=== PATIENT | male | born 1970 | race Caucasian/White ===

== ENCOUNTER 2023-06-25 04:29 | Observation (INO) ==
--- NOTE | 2023-06-25 05:04 | Emergency Department Note ---
Impression & Plan Acute cholecystitis, Upper abdominal pain, Leukocytosis, unspecified ED Provider Note NAME: DACIA NGO AGE: 53 SEX: M : 1970 ARRIVES VIA: Walk-In INFORMANT: Patient ED PROVIDER(S): Delio Lobo MD CHIEF COMPLAINT: Abdominal pain. PLAN: Disposition: Admit MEDICAL DECISION MAKING: The patient is a pleasant 53-year-old gentleman with a pmhx of hypertension who presents to the emergency department via walk-in for evaluation of worsening upper abdominal pain with nausea and vomiting which reports has been ongoing for the past week and been constant where he has found it difficult to sleep. He denies any fevers, chills, cough congestion. He reports some radiation to his back. He denies any diarrhea or constipation. He denies any urinary symptoms. He denies any prior history of similar pain. The patient reports alcohol use only on the weekends and amount can be variable but no recent heavy alcohol use. On evaluation the patient is uncomfortable in acute distress, afebrile blood pressure initially 190/120s in the setting of his discomfort and vital signs otherwise stable. He appears clinically dry. He has mild epigastric tenderness without guarding or rebound. There is a negative Pitt sign. WBC 14.3 K with neutrophil predominance though no left shift, nonspecific. H/H 18.5/56.7 without prior for comparison but consistent with patient's clinically dry appearance. Chemistry without metabolic acidosis. Electrolytes and LFTs including normal total bilirubin unremarkable. High-sensitivity troponin 8.4, within normal limits. Lipase is not elevated. CT of the on pelvis was performed and demonstrates evidence of cholecystitis with description of distended gallbladder and gallbladder wall thickening with pericholecystic inflammation and a 7 mm stone within the cystic duct. Blood cultures obtained and IV Zosyn ordered. Gallbladder ultrasound ordered to further characterize CT findings. Case was discussed with general surgery on-call, Dr. Sandoval, who will evaluate the patient for admission and further management. Triage Nursing notes reviewed and agree them. Prior/external medical records reviewed Vital Signs: reviewed Differential diagnosis: Appendicitis, testicular torsion, infections, diverticulitis, UTI, obstruction, mesenteric ischemia, aortic pathology, inflammatory bowel disease, renal colic, PUD, pancreatitis, biliary pathology, hernia, volvulus, constipation, as well as other pathologies. ER treatment provided: See below. Diagnostics interpreted by me: ECG: Normal sinus rhythm, 69 bpm, no ectopy, no overt ST elevation or depression, QTc 415, QRS 88. Cardiac Monitoring: An order for continuous cardiac monitoring was placed and demonstrated Normal sinus rhythm, 69 bpm, no ectopy. Laboratory studies: See below Imaging studies: See below Consultation(s): General surgery on-call, Dr. Sandoval HPI: The patient is a pleasant 53-year-old gentleman with a pmhx of hypertension who presents to the emergency department via walk-in for evaluation of worsening upper abdominal pain with nausea and vomiting which reports has been ongoing for the past week and been constant where he has found it difficult to sleep. He denies any fevers, chills, cough congestion. He reports some radiation to his back. He denies any diarrhea or constipation. He denies any urinary symptoms. He denies any prior history of similar pain. The patient reports alcohol use only on the weekends and amount can be variable but no recent heavy alcohol use. ROS: See above HPI for pertinent positives & negatives. A total of 10 systems reviewed and were otherwise negative. VITALS:See Below PHYSICAL EXAMINATION: GENERAL: Awake, alert, uncomfortable-appearing, in no distress HENT: Normocephalic, atraumatic. Oropharynx with dry mucous membranes and otherwise unremarkable. EYES: Normal conjunctiva. Sclera non-icteric. NECK: Supple. No nuchal rigidity. FROM. No JVD. RESPIRATORY: Clear to auscultation. CARDIAC: Regular rate, normal rhythm. Extremities warm and well perfused. Pulses equal. ABDOMEN: Soft, non-distended. Mild epigastric tenderness to palpation. No rebound or guarding. No masses. MUSCULOSKELETAL: Chest examination reveals no tenderness. The back is symmetrical on inspection without obvious abnormality. There is no CVA tenderness to palpation. No joint edema. LOWER EXTREMITIES: Calves are equal size bilaterally and non-tender. No edema. No discoloration. NEURO: Normal sensorium. No sensory or motor deficits noted. SKIN: No rash or jaundice noted. Delio Lobo MD Past Med/Surg History Medical History Hypertension Social History Smoking Status: Never smoker Feels Safe at Home: Yes Results & Data (ED) Vital Signs Vital Signs - 24 hr 06/25/23 04:33 06/25/23 04:42 06/25/23 04:50 Temperature 36.6 C Temperature Source Temporal Artery Scan Pulse Rate 70 66 68 Pulse Rate [Right Finger] Pulse Rhythm Regular Pulse Rhythm [Right Finger] Pulse Strength Normal Pulse Strength [Right Finger] Respiratory Rate 20 19 Respiratory Effort / Characteristics Non-Labored Spontaneous Respiratory Depth Normal Respiratory Pattern Regular Blood Pressure 190/125 H Blood Pressure [Left Arm] Blood Pressure Mean 146 Blood Pressure Mean [Left Arm] Blood Pressure Position Sitting Blood Pressure Position [Left Arm] Pulse Oximetry 95 95 Oxygen Delivery Method Room Air Room Air Sepsis Recent Fever Within 48 Hours No Sepsis New/Unexplained Change in Mental Status N/A Sepsis Action Taken by Nursing No Action Required 06/25/23 06:01 06/25/23 07:12 06/25/23 08:56 Temperature Temperature Source Pulse Rate 82 Pulse Rate [Right Finger] 73 63 Pulse Rhythm Pulse Rhythm [Right Finger] Regular Pulse Strength Pulse Strength [Right Finger] Normal Respiratory Rate 23 18 Respiratory Effort / Characteristics Non-Labored Spontaneous Respiratory Depth Normal Respiratory Pattern Blood Pressure Blood Pressure [Left Arm] 163/99 H 148/99 H Blood Pressure Mean Blood Pressure Mean [Left Arm] 120 115 Blood Pressure Position Blood Pressure Position [Left Arm] Lying Pulse Oximetry 93 94 Oxygen Delivery Method Room Air Room Air Sepsis Recent Fever Within 48 Hours Sepsis New/Unexplained Change in Mental Status Sepsis Action Taken by Nursing Laboratory Data Attestation: I reviewed the patient's lab results. 06/25/23 04:50 06/25/23 04:50 Lab Results 06/25/23 06/25/23 Range/Units 04:50 06:50 WBC 14.38 H (4.8-10.8) K/ul RBC 6.33 H (4.70-6.10) M/uL Hgb 18.5 H (14.0-18.0) g/dl Hct 56.7 H (42.0-52.0) % MCV 89.6 (80.0-100.0) fL MCH 29.2 (25.0-34.0) pg MCHC 32.6 (32.0-36.0) g/dL RDW Std Deviation 43.2 (36.4-46.3) fL RDW Coeff of Jennifer 13.6 (11.5-14.5) % Plt Count 289 (130-400) K/uL MPV 12.9 H (9.4-12.4) fL Immature Gran % (Auto) 0.7 % Neut % (Auto) 74.3 % Lymph % (Auto) 6.6 % Mason % (Auto) 13.4 % Eos % (Auto) 4.7 % Baso % (Auto) 0.3 % Neut # (Auto) 10.68 H (1.40-6.50) K/uL Lymph # (Auto) 0.95 L (1.20-3.40) K/uL Mason # (Auto) 1.93 H (0.11-0.59) K/uL Eos # (Auto) 0.68 H (0.00-0.50) K/uL Baso # (Auto) 0.04 (0.00-0.20) K/uL Immature Gran # (Auto) 0.10 (0.01-0.20) K/uL Sodium 137 (136-145) mmol/L Potassium 4.0 (3.5-5.1) mmol/L Chloride 101 (98-107) mmol/L Carbon Dioxide 27 (21-32) mmol/L Anion Gap 9 (3-11) BUN 15 (6-23) mg/dl Creatinine 1.23 (0.6-1.4) mg/dl Est Cr Clr Drug Dosing 69.8 ml/min Est GFR ( Amer) 77.2 ml/min Est GFR (Non-Af Amer) 66.6 ml/min BUN/Creatinine Ratio 12.2 (10-20) Glucose 98 (70-99(Fasting)) mg/dl Calcium 9.7 (8.6-10.3) mg/dl Total Bilirubin 0.5 (0.2-1.0) mg/dl Direct Bilirubin 0.1 (0-0.2) mg/dl AST 15 (13-39) U/L ALT 21 (7-52) U/L Alkaline Phosphatase 62 (34-104) U/L Troponin I High Sens 8.4 (0-20) pg/ml Total Protein 8.5 H (6.0-8.3) gm/dl Albumin 4.5 (3.4-5.0) gm/dl Globulin 4.0 (2.5-4.0) gm/dl Albumin/Globulin Ratio 1.1 (0.9-2) Lipase 29 (11-82) U/L Urine Color Yellow Urine Appearance Clear (Clear) Urine pH 5.5 (4.5-7.5) Ur Specific Willard 1.025 (1.000-1.030) Urine Protein 1+ H (Negative) Urine Glucose (UA) Negative (Negative) Urine Ketones Trace H (Negative) Urine Blood Negative (Negative) Urine Nitrite Negative (Negative) Urine Bilirubin Negative (Negative) Urine Urobilinogen Negative (Negative) Ur Leukocyte Esterase Negative (Negative) Urine WBC (Auto) 0 (0-5) /hpf Urine RBC (Auto) 0-4 (0-4) /hpf U Hyaline Cast (Auto) 1-5 (0-5) /lpf U Epithel Cells (Auto) 0-5 (0-5) /lpf Urine Bacteria (Auto) Negative (Negative) Administered Medications Discontinued Medications Sodium Chloride (Nss) 1,000 mls @ 999 mls/hr IV .Q1H1M STA Stop: 06/25/23 05:42 Last Infusion: 06/25/23 06:42 Dose: Infused Documented By: Admin: 06/25/23 05:11 Dose: 999 mls/hr Documented By: ALVIN Famotidine (Pepcid 20mg Iv Push) 20 mg in 5 mls @ 2.5 mls/min IV NOW STA Stop: 06/25/23 05:04 Last Admin: 06/25/23 05:12 Dose: 2.5 mls/min Documented By: ALVIN Sodium Chloride (Nss) 1,000 mls @ 999 mls/hr IV .Q1H1M ONE Stop: 06/25/23 08:18 Last Admin: 06/25/23 08:47 Dose: 999 mls/hr Documented By: RYLEY Ioversol (Optiray 320 100ml) 100 ml IV ONCE ONE Stop: 06/25/23 06:41 Last Admin: 06/25/23 06:41 Dose: 90 ml Documented By: LILIAM Morphine Sulfate (Morphine Sulfate 4 Mg/Ml 1 Ml Carp\Vial) 4 mg IV NOW STA Stop: 06/25/23 05:04 Last Admin: 06/25/23 05:11 Dose: 4 mg Documented By: ALVIN Morphine Sulfate (Morphine Sulfate 10 Mg/Ml Carp/Vial) 6 mg IV NOW STA Stop: 06/25/23 08:23 Last Admin: 06/25/23 08:47 Dose: 6 mg Documented By: RYLEY Ondansetron HCl (Ondansetron Inj 2 Mg/Ml 2 Ml Vial) 4 mg IV NOW STA Stop: 06/25/23 05:04 Last Admin: 06/25/23 05:11 Dose: 4 mg Documented By: ALVIN Imaging Data Radiologist's Impression: Abdomen/Pelvis CT 06/25/23 04:42 CT OF THE ABDOMEN AND PELVIS WITH CONTRAST CLINICAL HISTORY: Epigastric pain. COMPARISON STUDY: None. TECHNIQUE: Following IV administration of 90 mL of Optiray, axial images of the abdomen and pelvis were obtained from the lung bases to the proximal femurs. Images were reviewed in the axial, sagittal, and coronal planes. IV contrast was administered without complication. Automated exposure control was utilized for the study. A dose lowering technique was utilized adhering to the principles of ALARA. CT DOSE: 1464.09 mGy.cm FINDINGS: No pneumatosis, free air or portal venous gas is present. There is no biliary or pancreatic ductal dilatation. Possible hepatic steatosis. Several small hypodense hepatic lesions favor cysts. The gallbladder is moderately distended. Gallbladder wall thickening with pericholecystic stranding. A 7 mm calcified stone within the cystic duct is present. The spleen, adrenal glands, kidneys and pancreas are unremarkable. Is no hydronephrosis. The appendix is normal. The caliber and wall thickness of small and large bowel are normal. There is no lymphadenopathy. Suspected umbilical hernia repair with mesh is incidentally noted. Prominent bilateral inguinal lymph nodes are likely benign. Major vasculature is patent. Diverticulosis without evidence for acute diverticulitis. IMPRESSION: Findings consistent with acute cholecystitis. Distended gallbladder with gallbladder wall thickening and pericholecystic inflammation with a 7 mm stone within the cystic duct. ACT 112: Negative or not required by law. Electronically signed by: Percy Cortes M.D. 06/25/2023 7:30 AM Chest X-Ray 06/25/23 05:02 SINGLE VIEW CHEST CLINICAL HISTORY: Generalized abdominal pain. FINDINGS: An AP, portable, upright chest radiograph is obtained. No prior studies are available for comparison at the time of dictation. Surgical clips are noted in the right axilla. The cardiomediastinal silhouette is top normal for projection. There is bibasilar scarring/atelectasis. The lungs and pleural spaces are otherwise clear. No pneumothorax is seen. The bony thorax is grossly intact. IMPRESSION: No acute cardiopulmonary abnormality. ACT 112: Negative or not required by law. Electronically signed by: Harrison Donaldson M.D. 06/25/2023 7:29 AM Discharge Plan Visit Data Chief Complaint: Abdominal Pain Stated Complaint: ABD PAIN X7 DAYS ED Provider: Delio Lobo Discharge Problem: Acute cholecystitis, Upper abdominal pain, Leukocytosis, unspecified Forms Stand Alone Forms: [facility] Referrals Referrals: PCP,NO [Physician] - Discharge Problem: Leukocytosis, unspecified Qualifiers: Leukocytosis type: unspecified Qualified Code(s): D72.829 - Elevated white blood cell count, unspecified
[2023-06-25] MEDS: ONDANSETRON INJ 2 MG/ML 2 ML VIAL IV STA (05:11)
[2023-06-25] MEDS: MoRPHine SULFATE 4 MG/ML 1 ML CARP\\VIAL IV STA (05:11)
[2023-06-25] MEDS: SODIUM CHLORIDE 0.9% 1,000 ML IV STA (05:11)
[2023-06-25] MEDS: FAMOTIDINE 20MG IV PUSH 20 MG/5 ML SYR IV STA (05:12)
[2023-06-25 05:44] LABS: Basophils # (auto) 0.04 K/uL (0.00-0.20); Basophils % (auto) 0.3 %; Eosinophils # (auto) 0.68 K/uL (0.00-0.50); Eosinophils % (auto) 4.7 %; Hematocrit (blood only) 56.7 % (42.0-52.0); Hemoglobin 18.5 g/dl (14.0-18.0); Immature Granulocytes % (auto) 0.7 %; Lymphocytes # (auto) 0.95 K/uL (1.20-3.40); Lymphocytes % (auto) 6.6 %; Mean Corpuscular Hemoglobin 29.2 pg (25.0-34.0); Mean Corpuscular Hgb Conc 32.6 g/dL (32.0-36.0); Mean Corpuscular Volume 89.6 fL (80.0-100.0); Mean Platelet Volume 12.9 fL (9.4-12.4); Monocytes # (auto) 1.93 K/uL (0.11-0.59); Monocytes % (auto) 13.4 %; Neutrophils # (auto) 10.68 K/uL (1.40-6.50); Neutrophils % (auto) 74.3 %; Platelet Count 289 K/uL (130-400); RDW Coefficient of Variation 13.6 % (11.5-14.5); RDW Standard Deviation 43.2 fL (36.4-46.3); Red Blood Count 6.33 M/uL (4.70-6.10); White Blood Count 14.38 K/ul (4.8-10.8)
[2023-06-25 06:04] LABS: Albumin Globulin Ratio 1.1 (0.9-2); Albumin Level 4.5 gm/dl (3.4-5.0); BUN Creatinine Ratio 12.2 (10-20); Bilirubin Direct 0.1 mg/dl (0-0.2); Bilirubin,Total 0.5 mg/dl (0.2-1.0); Calcium 9.7 mg/dl (8.6-10.3); Creatinine Clr Calc Pharmacy 69.8 ml/min; Est GFR (African American) 77.2 ml/min; Est GFR (Non-African American) 66.6 ml/min; Total Protein 8.5 gm/dl (6.0-8.3)
[2023-06-25 06:08] LABS: Troponin I High Sensitivity 8.4 pg/ml (0-20)
[2023-06-25] MEDS: OPTIRAY 320 100ml IV ONE (06:41)
--- NOTE | 2023-06-25 07:30 | XRay Report ---
SINGLE VIEW CHEST CLINICAL HISTORY: Generalized abdominal pain. FINDINGS: An AP, portable, upright chest radiograph is obtained. No prior studies are available for c omparison at the time of dictation. Surgical clips are noted in the right axilla. The cardiomediastin al silhouette is top normal for projection. There is bibasilar scarring/atelectasis. The lungs and pl eural spaces are otherwise clear. No pneumothorax is seen. The bony thorax is grossly intact. IMPRESSION: No acute cardiopulmonary abnormality. ACT 112: Negative or not required by law. Electronically signed by: Harrison Donaldson M.D. 06/25/2023 7:29 AM
--- NOTE | 2023-06-25 07:32 | CT Scan Report ---
CT OF THE ABDOMEN AND PELVIS WITH CONTRAST CLINICAL HISTORY: Epigastric pain. COMPARISON STUDY: None. TECHNIQUE: Following IV administration of 90 mL of Optiray, axial images of the abdomen and pelvis we re obtained from the lung bases to the proximal femurs. Images were reviewed in the axial, sagittal, and coronal planes. IV contrast was administered without complication. Automated exposure control wa s utilized for the study. A dose lowering technique was utilized adhering to the principles of ALARA . CT DOSE: 1464.09 mGy.cm FINDINGS: No pneumatosis, free air or portal venous gas is present. There is no biliary or pancreatic ductal dilatation. Possible hepatic steatosis. Several small hypodense hepatic lesions favor cysts. The gallbladder is moderately distended. Gallbladder wall thickening with pericholecystic stranding. A 7 mm calcified stone within the cystic duct is present. The spleen, adrenal glands, kidneys and dahl creas are unremarkable. Is no hydronephrosis. The appendix is normal. The caliber and wall thickness of small and large bowel are normal. There is no lymphadenopathy. Suspected umbilical hernia repair w ith mesh is incidentally noted. Prominent bilateral inguinal lymph nodes are likely benign. Major vas culature is patent. Diverticulosis without evidence for acute diverticulitis. IMPRESSION: Findings consistent with acute cholecystitis. Distended gallbladder with gallbladder wal l thickening and pericholecystic inflammation with a 7 mm stone within the cystic duct. ACT 112: Negative or not required by law. Electronically signed by: Percy Cortes M.D. 06/25/2023 7:30 AM
[2023-06-25 08:04] LABS: Appearance Urine Clear (Clear); Bacteria Urine Automated Negative (Negative); Bilirubin Urine Negative (Negative); Blood Urine Negative (Negative); Color Urine Yellow; Epithelial Cell Urine Auto 0-5 /lpf (0-5); Glucose Urine UA Negative (Negative); Ketones Urine Trace (Negative); Leukocyte Esterase Urine Negative (Negative); Nitrite Urine Negative (Negative); Protein Urine 1+ (Negative); RBC Urine Automated 0-4 /hpf (0-4); Specific Gravity Urine 1.025 (1.000-1.030); Urobilinogen Urine Negative (Negative); WBC Urine Automated 0 /hpf (0-5); pH Urine 5.5 (4.5-7.5)
[2023-06-25] MEDS: SODIUM CHLORIDE 0.9% 1,000 ML IV ONE (08:47)
[2023-06-25] MEDS: MoRPHine SULFATE 10 MG/ML CARP/VIAL IV STA (08:47)
[2023-06-25] MEDS: PIPERACILLIN/TAZOBACTAM 4.5 GM in DEXTROSE 5% MINI-B 100 ML IV ONE (09:22)
--- NOTE | 2023-06-25 09:32 | Ultrasound Report ---
US gallbladder CLINICAL HISTORY: Abdominal pain, cholecystitis. COMPARISON STUDY: CT of the abdomen and pelvis performed earlier today. FINDINGS: Hepatic echogenicity is increased. This indicates hepatic steatosis. Hypoechoic foci within the gallbladder fossa represents fatty sparing. There is no biliary ductal dilatation. Common bile m easures 5 cm in caliber. The gallbladder is moderately distended. The wall is mildly thickened. There is pericholecystic fluid. Sonographic Pitt sign was elicited. No gallstones are identified. The cy stic duct stone shown by CT is not well visualized by sonography. Pancreas is unremarkable by sonogra phy. IMPRESSION: 1. Findings consistent with acute cholecystitis. Distended gallbladder with gallbladder wall thickeni ng and pericholecystic fluid. Sonographic Pitt sign. Cystic duct stone on CT not well-visualized by sonography. 2. No biliary ductal dilatation. 3. Hepatic steatosis. ACT 112: Negative or not required by law. Electronically signed by: Percy Cortes M.D. 06/25/2023 9:31 AM
--- NOTE | 2023-06-25 09:56 | History & Physical Report ---
Date of Service June 25, 2023 Assessment & Plan (1) Acute cholecystitis: (2) Upper abdominal pain: (3) Leukocytosis, unspecified: Plan 53 year old male with 1 week history of upper abdominal pain that was intermittent at first but progressively worsened and persistent. Associated low grade fever. Anorexia. No nausea or vomiting. CT scan and US showing acute cholecystitis. CT scan with possible cystic duct stone however US did not show any stones. No biliary obstruction, t. bili, LFTS and lipase wnl. Leukocytosis of 14k. Plan: Discussed with patient imaging findings consistent with acute cholecystitis. He has had pain now for about 1 week. Discussed indication for laparoscopic cholecystectomy. Discussed risks of procedure, expected recovery, and restrictions. Informed consent obtained keep npo IV fluids pain management OR today for laparoscopic cholecystectomy with Dr. Xiao Villeda at earliest convenience. Discussed patient with Dr. Villeda, see addendum for further recommendations/plan. History of Present Illness Chief Complaint: Epigastric / RUQ Abdominal pain Primary Care Provider: Nestor Kulkarni MD Madhu is a 53 year old male with history of hypertension who presented to ED with 1 week history of upper /RUQ abdominal pain that has been intermittent but increasing in severity. Some low grade fever of 100 but no persistent fevers, chills or sweats. No nausea or vomiting but has not been able to eat or drink much. Urinating without difficulty. Nothing seems to make the pain better. Pain was severe last evening and that is what prompted ER evaluation. History of umbilical hernia repair with mesh about 20 years ago. No other abdominal surgeries. No blood thinning agents. Currently states he is feeling better than last evening when pain was 9/10. Now currently 5/10 but had 6 mg of Morphine. No nausea or vomiting. Has not had anything to eat or drink today. Allergies Allergy/AdvReac Type Severity Reaction Status Date / Time No Known Allergies Allergy Unverified 06/25/23 09:58 Home Medications Medication Instructions Recorded Confirmed Type lisinopril 10 mg tablet 10 mg PO DAILY 06/25/23 06/25/23 History tamsulosin 0.4 mg capsule 0.4 mg PO DAILY 06/25/23 06/25/23 History Past Med/Surg History Medical History (Updated 06/25/23 @ 09:04 by Delio Lobo MD) Hypertension Surgical History (Updated 06/25/23 @ 09:52 by Naina Alvarez PA-C) History of umbilical hernia repair Social History Smoking Status: Never smoker Feels Safe at Home: Yes Review of Systems Review of Systems: All systems reviewed & are unremarkable except as noted in HPI & below Physical Exam Constitutional: WD/WN, vitals as above cooperative and comfortable; no acute distress, not diaphoretic and not lethargic Neck: normal visual inspection and trachea midline Respiratory: normal respiratory effort, lungs clear to auscultation Cardiovascular: RRR, no murmur, no edema Gastrointestinal (Abdomen): Inspection/Auscultation: abdomen normal to inspection, normal bowel sounds and + abdominal surgical scar (umbilical incision); abdomen not distended Percussion/Palpation: + abdomen tender (RUQ and epigastrium), + guarding (RUQ on mild palpation, voluntary) and abdomen soft; abdomen not rigid and abdomen not firm Positive Hopewell sign Skin: no rashes, warm and dry no jaundice Psychiatric: A+Ox3, euthymic affect Results & Data Results & Data Vital Signs (Past 12 Hours) Vital Signs Temp Pulse Pulse Resp BP BP Pulse Ox 06/25/23 09:32 71 19 95 06/25/23 09:32 160/116 H 06/25/23 09:30 74 21 96 06/25/23 09:21 69 14 93 06/25/23 09:21 167/111 H 06/25/23 09:20 78 21 93 06/25/23 08:56 82 06/25/23 08:48 169/106 H 06/25/23 08:48 71 16 94 06/25/23 08:30 62 21 93 06/25/23 08:00 59 L 22 94 06/25/23 07:30 70 21 93 06/25/23 07:12 63 18 148/99 H 94 06/25/23 07:00 66 25 H 93 06/25/23 06:49 84 16 93 06/25/23 06:49 148/99 H 06/25/23 06:30 67 22 92 06/25/23 06:02 163/99 H 06/25/23 06:02 68 22 93 06/25/23 06:01 64 24 93 06/25/23 06:01 186/108 H 06/25/23 06:01 73 23 163/99 H 93 06/25/23 06:00 75 18 94 06/25/23 05:30 83 20 92 06/25/23 05:00 76 22 96 06/25/23 04:50 68 23 95 06/25/23 04:50 158/101 H 06/25/23 04:50 68 06/25/23 04:42 66 19 95 06/25/23 04:33 36.6 C 70 20 190/125 H 95 O2 Del Method 06/25/23 09:32 06/25/23 09:32 06/25/23 09:30 06/25/23 09:21 06/25/23 09:21 06/25/23 09:20 06/25/23 08:56 06/25/23 08:48 06/25/23 08:48 06/25/23 08:30 06/25/23 08:00 06/25/23 07:30 06/25/23 07:12 Room Air 06/25/23 07:00 06/25/23 06:49 06/25/23 06:49 06/25/23 06:30 06/25/23 06:02 06/25/23 06:02 06/25/23 06:01 06/25/23 06:01 06/25/23 06:01 Room Air 06/25/23 06:00 06/25/23 05:30 06/25/23 05:00 06/25/23 04:50 06/25/23 04:50 06/25/23 04:50 06/25/23 04:42 Room Air 06/25/23 04:33 Room Air Laboratory Results 06/25/23 06/25/23 Range/Units 06:50 04:50 WBC 14.38 H (4.8-10.8) K/ul RBC 6.33 H (4.70-6.10) M/uL Hgb 18.5 H (14.0-18.0) g/dl Hct 56.7 H (42.0-52.0) % MCV 89.6 (80.0-100.0) fL MCH 29.2 (25.0-34.0) pg MCHC 32.6 (32.0-36.0) g/dL RDW Std Deviation 43.2 (36.4-46.3) fL RDW Coeff of Jennifer 13.6 (11.5-14.5) % Plt Count 289 (130-400) K/uL MPV 12.9 H (9.4-12.4) fL Immature Gran % (Auto) 0.7 % Neut % (Auto) 74.3 % Lymph % (Auto) 6.6 % [place] % (Auto) 13.4 % Eos % (Auto) 4.7 % Baso % (Auto) 0.3 % Neut # (Auto) 10.68 H (1.40-6.50) K/uL Lymph # (Auto) 0.95 L (1.20-3.40) K/uL [place] # (Auto) 1.93 H (0.11-0.59) K/uL Eos # (Auto) 0.68 H (0.00-0.50) K/uL Baso # (Auto) 0.04 (0.00-0.20) K/uL Immature Gran # (Auto) 0.10 (0.01-0.20) K/uL Sodium 137 (136-145) mmol/L Potassium 4.0 (3.5-5.1) mmol/L Chloride 101 (98-107) mmol/L Carbon Dioxide 27 (21-32) mmol/L Anion Gap 9 (3-11) BUN 15 (6-23) mg/dl Creatinine 1.23 (0.6-1.4) mg/dl Est Cr Clr Drug Dosing 69.8 ml/min Est GFR ( Amer) 77.2 ml/min Est GFR (Non-Af Amer) 66.6 ml/min BUN/Creatinine Ratio 12.2 (10-20) Glucose 98 (70-99(Fasting)) mg/dl Calcium 9.7 (8.6-10.3) mg/dl Total Bilirubin 0.5 (0.2-1.0) mg/dl Direct Bilirubin 0.1 (0-0.2) mg/dl AST 15 (13-39) U/L ALT 21 (7-52) U/L Alkaline Phosphatase 62 (34-104) U/L Troponin I High Sens 8.4 (0-20) pg/ml Total Protein 8.5 H (6.0-8.3) gm/dl Albumin 4.5 (3.4-5.0) gm/dl Globulin 4.0 (2.5-4.0) gm/dl Albumin/Globulin Ratio 1.1 (0.9-2) Lipase 29 (11-82) U/L Urine Color Yellow Urine Appearance Clear (Clear) Urine pH 5.5 (4.5-7.5) Ur Specific [place] 1.025 (1.000-1.030) Urine Protein 1+ H (Negative) Urine Glucose (UA) Negative (Negative) Urine Ketones Trace H (Negative) Urine Blood Negative (Negative) Urine Nitrite Negative (Negative) Urine Bilirubin Negative (Negative) Urine Urobilinogen Negative (Negative) Ur Leukocyte Esterase Negative (Negative) Urine WBC (Auto) 0 (0-5) /hpf Urine RBC (Auto) 0-4 (0-4) /hpf U Hyaline Cast (Auto) 1-5 (0-5) /lpf U Epithel Cells (Auto) 0-5 (0-5) /lpf Urine Bacteria (Auto) Negative (Negative) Diagnostic Findings US gallbladder CLINICAL HISTORY: Abdominal pain, cholecystitis. COMPARISON STUDY: CT of the abdomen and pelvis performed earlier today. FINDINGS: Hepatic echogenicity is increased. This indicates hepatic steatosis. Hypoechoic foci within the gallbladder fossa represents fatty sparing. There is no biliary ductal dilatation. Common bile measures 5 cm in caliber. The gallbladder is moderately distended. The wall is mildly thickened. There is pericholecystic fluid. Sonographic Pitt sign was elicited. No gallstones are identified. The cystic duct stone shown by CT is not well visualized by sonography. Pancreas is unremarkable by sonography. IMPRESSION: 1. Findings consistent with acute cholecystitis. Distended gallbladder with gallbladder wall thickening and pericholecystic fluid. Sonographic Pitt sign. Cystic duct stone on CT not well-visualized by sonography. 2. No biliary ductal dilatation. 3. Hepatic steatosis. CT OF THE ABDOMEN AND PELVIS WITH CONTRAST CLINICAL HISTORY: Epigastric pain. COMPARISON STUDY: None. TECHNIQUE: Following IV administration of 90 mL of Optiray, axial images of the abdomen and pelvis were obtained from the lung bases to the proximal femurs. Images were reviewed in the axial, sagittal, and coronal planes. IV contrast was administered without complication. Automated exposure control was utilized for the study. A dose lowering technique was utilized adhering to the principles of ALARA. CT DOSE: 1464.09 mGy.cm FINDINGS: No pneumatosis, free air or portal venous gas is present. There is no biliary or pancreatic ductal dilatation. Possible hepatic steatosis. Several small hypodense hepatic lesions favor cysts. The gallbladder is moderately distended. Gallbladder wall thickening with pericholecystic stranding. A 7 mm calcified stone within the cystic duct is present. The spleen, adrenal glands, kidneys and pancreas are unremarkable. Is no hydronephrosis. The appendix is normal. The caliber and wall thickness of small and large bowel are normal. There is no lymphadenopathy. Suspected umbilical hernia repair with mesh is incidentally noted. Prominent bilateral inguinal lymph nodes are likely benign. Major vasculature is patent. Diverticulosis without evidence for acute diverticulitis. IMPRESSION: Findings consistent with acute cholecystitis. Distended gallbladder with gallbladder wall thickening and pericholecystic inflammation with a 7 mm stone within the cystic duct. Code Status & VTE Plan VTE Prophylaxis Plan VTE Prophylaxis will be ordered: Yes Supervising Physician Co-Signing Physician Notes Pt personally seen and examined. Agree with detailed history and physical as above. History of right upper quadrant pain for about a week, imaging shows stone in cystic duct, wbc ct elevated at 14, lft's normal. On exam, tender in right upper quadrant with pitt's sign. Prior umbilical hernia repair with mesh. Discussed laparoscopic cholecystectomy with risks of bleeding, infection, conversion to open, injury to common bile duct, need for ercp due to bile leak or retained stone, possible drain placement, postop diarrhea, intolerance to foods all reviewed. Expected overnight hospital stay and 1-2 week recovery discussed. Explained that recovery is longer if procedure is open. Consent signed. Will plan on OR today. Already given IV antibiotics in ER. (3) Leukocytosis, unspecified Leukocytosis type: unspecified Qualified Code(s): D72.829 - Elevated white blood cell count, unspecified
--- NOTE | 2023-06-25 10:47 | Anesthesiology Consultation ---
Date of Service June 25, 2023 Assessment & Plan (1) Encounter for pre-operative examination: Chart Review Chart Review: Acceptable Risk for Surgery and Patient NOT seen in Pre Admission Testing Consults Requested none History Surgery Operation Date: 06/25/23 09:25 Proposed Procedures p Laparoscopic Cholecystectomy - Xiao Villeda MD Height/Weight Height: 6 ft Weight: 71.1 kg Allergies Allergy/AdvReac Type Severity Reaction Status Date / Time No Known Allergies Allergy Unverified 06/25/23 09:58 Medications Home Medications Medication Instructions Recorded Confirmed Last Taken lisinopril 10 mg tablet 10 mg PO DAILY 06/25/23 06/25/23 Unknown tamsulosin 0.4 mg capsule 0.4 mg PO DAILY 06/25/23 06/25/23 Unknown Past Medical History Medical History (Updated 06/25/23 @ 10:47 by Inocencio Martinez MD) Encounter for pre-operative examination Hypertension Past Surgical History Surgical History History of umbilical hernia repair Social History Smoking Status: Never smoker Physical Exam Vital Signs Last Vital Signs Temp 36.6 C 06/25/23 04:33 Pulse 71 06/25/23 09:32 Resp 19 06/25/23 09:32 BP 160/116 H 06/25/23 09:32 Pulse Ox 95 06/25/23 09:32 O2 Del Method Room Air 06/25/23 07:12 Testing Laboratory Results 06/25/23 04:50 06/25/23 04:50 Urine Color Yellow 06/25/23 06:50 Urine Appearance Clear (Clear) 06/25/23 06:50 Urine pH 5.5 (4.5-7.5) 06/25/23 06:50 Ur Specific [place] 1.025 (1.000-1.030) 06/25/23 06:50 Urine Protein 1+ (Negative) H 06/25/23 06:50 Urine Glucose (UA) Negative (Negative) 06/25/23 06:50 Urine Ketones Trace (Negative) H 06/25/23 06:50 Urine Nitrite Negative (Negative) 06/25/23 06:50 Ur Leukocyte Esterase Negative (Negative) 06/25/23 06:50 Urine WBC (Auto) 0 /hpf (0-5) 06/25/23 06:50 Urine RBC (Auto) 0-4 /hpf (0-4) 06/25/23 06:50 U Hyaline Cast (Auto) 1-5 /lpf (0-5) 06/25/23 06:50 U Epithel Cells (Auto) 0-5 /lpf (0-5) 06/25/23 06:50 Urine Bacteria (Auto) Negative (Negative) 06/25/23 06:50 Electrocardiogram Date: 06/25/23 HR 69 Normal sinus rhythm Abnormal QRS-T angle, consider primary T wave abnormality Abnormal ECG No previous ECGs available Chest X-Ray Date: 06/25/23 SINGLE VIEW CHEST CLINICAL HISTORY: Generalized abdominal pain. FINDINGS: An AP, portable, upright chest radiograph is obtained. No prior studies are available for comparison at the time of dictation. Surgical clips are noted in the right axilla. The cardiomediastinal silhouette is top normal for projection. There is bibasilar scarring/atelectasis. The lungs and pleural spaces are otherwise clear. No pneumothorax is seen. The bony thorax is grossly intact. IMPRESSION: No acute cardiopulmonary abnormality. Other Testing CT abdomen 06/25/23: IMPRESSION: Findings consistent with acute cholecystitis. Distended gallbladder with gallbladder wall thickening and pericholecystic inflammation with a 7 mm stone within the cystic duct.
[2023-06-25] MEDS ORDERED: PROPOFOL IV EMULSION 10 MG/ML 20 ML VIAL IV ONE ×2 (10:52→13:35)
[2023-06-25] MEDS ORDERED: ROCURONIUM BROMIDE 10 MG/ML 5 ML VIAL IV ONE ×2 (10:52→13:03)
[2023-06-25] MEDS ORDERED: DEXAMETHASONE SOD INJ 4 MG/ML VIAL ONE (10:52)
[2023-06-25] MEDS ORDERED: ONDANSETRON INJ 2 MG/ML 2 ML VIAL ONE (10:52)
[2023-06-25] MEDS ORDERED: MIDAZOLAM HCL 1 MG/ML 2ML VIAL ONE (10:53)
[2023-06-25] MEDS ORDERED: fentaNYL citrate PF 100 MCG/2 ML VIAL ONE ×2 (10:53→12:45)
[2023-06-25] MEDS: LACTATED RINGER'S 1,000 ML IV SCH ×2 (11:35→16:38)
[2023-06-25] MEDS ORDERED: ATROPINE SULFATE 0.1 MG/ML 10ML SYR IV PRN (12:09)
[2023-06-25] MEDS ORDERED: fentaNYL citrate PF 100 MCG/2 ML VIAL IV PRN (12:09)
[2023-06-25] MEDS ORDERED: ePHEDrine sulfate 50 MG/ML AMP IV PRN (12:09)
[2023-06-25] MEDS ORDERED: ONDANSETRON INJ 2 MG/ML 2 ML VIAL IV PRN ×2 (12:09→16:23)
[2023-06-25] MEDS ORDERED: LABETALOL HCL IV 5 MG/ML 20ML IV ONE (12:54)
[2023-06-25] MEDS ORDERED: GLYCOPYRROLATE 0.2 MG/ML VIAL ONE (13:03)
[2023-06-25] MEDS ORDERED: NEOSTIGMINE METHYLSULFATE 1 MG/ML 10ML VIAL ONE (13:03)
[2023-06-25] MEDS ORDERED: KETOROLAC 30 MG/ML VIAL ONE (13:53)
[2023-06-25] MEDS: BUPIVACAINE 0.5 % 5 MG/1 ML MPF 30ML VIAL ONE (13:55)
--- NOTE | 2023-06-25 14:04 | Operative Report ---
Post Operative Report Pre & Post Diagnosis Operation Date: 06/25/23 09:25 Pre-Op Diagnosis: 1) Acute calculous cholecystitis (2) Upper abdominal pain (3) Leukocytosis, unspecified Post-Op Diagnosis: 1) Acute calculous cholecystitis (2) Upper abdominal pain (3) Leukocytosis, unspecified I identified the patient and participated in the time-out.: Yes Procedure Operation Date: 06/25/23 09:25 Actual Procedures p Laparoscopic Cholecystectomy(Not Applicable) - Xiao Villeda MD Surgeon Xiao Villeda MD [employer] [facility] Estimated Blood Loss 10 Findings Consistent with Post-Op Diagnosis acute cholecystitis with edematous gallbladder filled with cloudy thick white bile Fluids 700 cc Specimens gallbladder and contents Drains 10 flat TORRES in right upper quadrant Anesthesia Type General Complications none Disposition Accompanied Patient To Recovery: No Indications 53-year-old man who presented with acute calculus cholecystitis with pain that have been going on for 1 week. He was tender in the right upper quadrant with a Pitt sign. CT scan showed changes consistent with acute cholecystitis with a stone in the cystic duct. Liver function test were normal. He did have a leukocytosis. He was consented for laparoscopic cholecystectomy. He had a prior umbilical hernia repair with mesh. Description of Procedure The patient received Zosyn preoperatively he underwent induction of general endotracheal anesthesia and placement with mitral compression devices. His abdomen was sterilely clipped and then prepped and draped. Of note, in the prepping of the abdomen he was noted to have a firm subcutaneous mass in the right lower quadrant consistent with a possible hematoma. This measured about 4 x 2 cm in size. There was mild overlying redness of the skin. He was positioned in Trendelenburg. After a timeout, an epigastric incision was made and carried down to the epigastric trick fascia. The fascia was grasped with 0 Vicryl stay sutures on either side. The fascia was opened and then the abdomen bluntly entered with a finger. A 11 mm trocar was placed. This revealed evidence of adhesive disease containing omentum to the patient's prior umbilical hernia site. There was no sign of any hernia recurrence. There was no evidence of any intra-abdominal pathology around the area of the right lower quadrant subcutaneous lesion. A 5 mm trocar was placed above the umbilicus under direct vision. The patient was positioned to reverse Trendelenburg. Two 5 mm trocars were placed in the right upper abdomen. The omentum was noted to be adhesed to the gallbladder. The omentum was taken down bluntly. The gallbladder was acutely edematous and unable to be grasped. It was decompressed of white bile. The gallbladder was then grasped and retracted over the edge of the liver. The dissection was begun at the triangle of Staci and the cystic duct and cystic artery identified. The cystic artery was initially taken with clips. The cystic duct was seen but was noted to be wide. The critical views were seen anteriorly and posteriorly. And thus the 11 mm trocar was placed to aid 12 mm trocar and a large clip set up mechanic automatic line used to go across the cystic duct. 2 clips were placed on the remaining side and 2 on the gallbladder side and the duct was divided. Prior to this I should note the duct had been squeezed and there was no evidence of a stone felt. The gallbladder was then dissected off the liver bed. This was a tedious dissection due to significant inflammatory edematous tissue. 2 smaller vessels were also taken with a clip. The gallbladder was ultimately removed and placed in an Endobag. It was removed through the epigastric incision. The abdomen was irrigated and suctioned dry. Hemostasis was noted to be present. A 10 flat TORRES was brought through the right lateral port site and placed in the gallbladder fossa. This was secured to the skin with a nylon stitch. 30 cc of half percent Marcaine had been used for local anesthesia throughout the procedure. Once the trocars were removed the epigastric incision was closed with 0 Vicryl stitches placed anteriorly. The skin of all 3 incisions closed with running subcuticular 4-0 Vicryl sutures. Steri-Strips and sterile dressings were applied. He was awakened and taken to recovery in stable condition. The PA was instrumental in running the camera and assisting in retraction during this difficult gallbladder. I attest to the content of the Intraoperative Record and any orders documented therein. Any exceptions are noted below.
--- NOTE | 2023-06-25 14:21 | Anesthesiology Progress Note ---
Date of Service June 25, 2023 Anesthesia Post Procedure Vital Signs Vital Signs: Temp Pulse Pulse Resp BP BP Pulse Ox 06/25/23 11:26 36.9 C 64 20 167/106 H 96 06/25/23 11:15 06/25/23 11:00 64 17 94 06/25/23 11:00 131/87 06/25/23 11:00 86 18 121/87 97 06/25/23 10:31 62 22 94 06/25/23 10:31 165/98 H 06/25/23 10:30 77 18 06/25/23 10:00 62 20 93 06/25/23 10:00 144/89 H 06/25/23 09:32 71 19 95 06/25/23 09:32 160/116 H 06/25/23 09:30 74 21 96 06/25/23 09:21 69 14 93 06/25/23 09:21 167/111 H 06/25/23 09:20 78 21 93 06/25/23 08:56 82 06/25/23 08:48 169/106 H 06/25/23 08:48 71 16 94 06/25/23 08:30 62 21 93 06/25/23 08:00 59 L 22 94 06/25/23 07:30 70 21 93 06/25/23 07:12 63 18 148/99 H 94 06/25/23 07:00 66 25 H 93 06/25/23 06:49 84 16 93 06/25/23 06:49 148/99 H 06/25/23 06:30 67 22 92 06/25/23 06:02 163/99 H 06/25/23 06:02 68 22 93 06/25/23 06:01 64 24 93 06/25/23 06:01 186/108 H 06/25/23 06:01 73 23 163/99 H 93 06/25/23 06:00 75 18 94 06/25/23 05:30 83 20 92 06/25/23 05:00 76 22 96 06/25/23 04:50 68 23 95 06/25/23 04:50 158/101 H 06/25/23 04:50 68 06/25/23 04:42 66 19 95 06/25/23 04:33 36.6 C 70 20 190/125 H 95 O2 Del Method 06/25/23 11:26 Room Air 06/25/23 11:15 Room Air 06/25/23 11:00 06/25/23 11:00 06/25/23 11:00 Room Air 06/25/23 10:31 06/25/23 10:31 06/25/23 10:30 06/25/23 10:00 06/25/23 10:00 06/25/23 09:32 06/25/23 09:32 06/25/23 09:30 06/25/23 09:21 06/25/23 09:21 06/25/23 09:20 06/25/23 08:56 06/25/23 08:48 06/25/23 08:48 06/25/23 08:30 06/25/23 08:00 06/25/23 07:30 06/25/23 07:12 Room Air 06/25/23 07:00 06/25/23 06:49 06/25/23 06:49 06/25/23 06:30 06/25/23 06:02 06/25/23 06:02 06/25/23 06:01 06/25/23 06:01 06/25/23 06:01 Room Air 06/25/23 06:00 06/25/23 05:30 06/25/23 05:00 06/25/23 04:50 06/25/23 04:50 06/25/23 04:50 06/25/23 04:42 Room Air 06/25/23 04:33 Room Air Pain Intensity Bilateral Abdomen: Pain Intensity: 3 Transfer of Care Handoff Completed per policy Notes Mental Status: alert / awake / arousable and participated in evaluation Patient Amnestic to Procedure: Yes Nausea / Vomiting: adequately controlled Pain: adequately controlled Airway Patency, RR, SpO2: stable & adequate BP & HR: stable & adequate Hydration State: stable & adequate Anesthetic Complications: no major complications apparent and Pt Satisfied with anesthetic care
[2023-06-25] MEDS ORDERED: MoRPHine SULFATE 4 MG/ML 1 ML CARP\\VIAL IV PRN (16:23)
[2023-06-25] MEDS ORDERED: KETOROLAC TROMETHAMINE 15 MG/ML VIAL IV PRN (16:23)
[2023-06-25] MEDS ORDERED: MoRPHine SULFATE 2 MG/ML CARP IV PRN (16:23)
[2023-06-25] MEDS: PIPERACILLIN/TAZOBACTAM 4.5 GM in DEXTROSE 5% MINI-B 100 ML IV SCH (17:00)
[2023-06-25] MEDS: oxyCODONE/ACETAMINOPHEN 5mg/325mg TAB PO PRN (21:40)
[2023-06-26] MEDS: oxyCODONE/ACETAMINOPHEN 5mg/325mg TAB PO PRN (04:38)
--- NOTE | 2023-06-26 07:21 | Electrocardiogram Report ---
Test Reason : Blood Pressure : / mmHG Vent. Rate : 069 BPM Atrial Rate : 069 BPM P-R Int : 130 ms QRS Dur : 088 ms QT Int : 388 ms P-R-T Axes : 006 058 -02 degrees QTc Int : 415 ms Normal sinus rhythm Inferior T wave abnormality Abnormal ECG No previous ECGs available Confirmed by Kit Lombardi ([id number]) on 06/26/2023 7:21:05 AM Referred By: Nestor Kulkarni Confirmed By:Kit Lombardi
--- OUTSIDE RECORDS SUMMARY | 2023-06-26 08:07 | External Medical Summary | Summary of Care ---
Author Name Unknown Organization [facility] Address [address] [facility] [place] [address] Phone [phone] Care Team Providers Care Inflatable Buildings Laminator Name Role Phone Nestor Kulkarni MD Primary Care Provider [phone] [phone] Encounter Details Date Type Department Care Team (Late st Contact Info) Description 05/03/2023 Telephone Family Practice [facility] [address] [place] [address] Nestor Kulkarni MD [address] [place] [address] Allergies No known active allergiesdocumented as of this encounter (statuses as of 05/03/2023) Medications Medication Sig Dispensed Refills Start Date End Date Status Testosterone Enanthate 200 MG/ML Injection Solution Inject 250 mg as directed once a week. 0 Active metFORMIN HCl 1000 MG Oral Tablet (Glucophage) Take 1 Tablet by mouth 2 times a day with morning and evening meals. 0 Active Semaglutide(0.25 or 0.5MG/DOS) 2 MG/3ML Solution Pen-injector (Ozempic) Inject 0.25 mg under the skin once a week. 3 mL 5 08/31/2022 Active Tamsulosin HCl 0.4 MG Oral Capsule (Flomax) Take 1 Capsule by mouth in the morning. 100 Capsule 1 01/04/2023 Active Benzonatate 200 MG Oral CapsuleIndications: Acute cough Take 1 Capsule by mouth 3 times a day as needed for Cough. 50 Capsule 1 03/18/2023 Active Lisinopril 10 MG Oral Tablet (Prinivil) Take 1 Tablet by mouth in the morning. 30 Tablet 5 03/18/2023 Active Diclofenac Sodium 75 MG Oral Tablet Delayed Release (Voltaren) Take 1 Tablet by mouth in the morning and 1 Tablet before bedtime. With food.. 60 Tablet 1 04/27/2023 Active Phentermine HCl 37.5 MG Oral CapsuleIndications: Prediabetes Take 1 Capsule by mouth in the morning. 30 Capsule 0 04/27/2023 Active documented as of this encounter (statuses as of 05/03/2023) Active Problems Problem Noted Date Diagnosed Date Long-term current use of testosterone replacemen t therapy 04/06/2023 Lumbar degenerative disc disease 04/06/2023 BPH with obstruction/lower urinary tract symptom s 04/06/2023 Obesity, Class I, BMI 30.0-34.9 (see actual BMI) 04/03/2020 Prediabetes 03/27/2020 HTN, goal below 130/80 03/25/2020 documented as of this encounter (statuses as of 05/03/2023) Resolved Problems Problem Noted Date Diagnosed Date Resolved Date Chronic bilateral low back p ain without sciatica 12/22/2022 04/06/2023 documented as of this encounter (statuses as of 05/03/2023) Immunizations Name Administration Dates Next Due Zoster Vaccine Recombinant (Shingrix) 03/30/2022 documented as of this encounter Social History Tobacco Use Types Packs/Day Years Used Date Smoking Tobacco: Never Smokeless Tobacco: Former Chew Alcohol Use Standard Drinks/Week Comments Yes 0 (1 standard drink = 0.6 oz pur e alcohol) PHQ-2 Answer Date Recorded PHQ Adult Total Score 0 03/26/2020 Hunger Vital Sign Answer Date Recorded Within the past 12 months, y ou worried that your food would run out before you got the money to buy more. Never true 07/29/19 23 Within the past 12 months, t he food you bought just didn't last and you didn't have money to get more. Never true 07/28/2022 Sex and Gender Information Value Date Recorded Sex Assigned at Male 03/29/2022 9:03 PM EST Gender Identity Male 03/29/2022 9:03 PM EST Sexual Orientation Straight 03/29/2022 9: 03 PM EST Job Start Date Occupation Industry Not on file Not on file Not on file documented as of this encounter Miscellaneous Notes * Telephone Encounter - Nestor Goodwin RPh - 05/03/2023 3:27 PM EST Images from the original note were not included. Patient has elevated protein in urine. Hemoglobin AIC Results: Lab Results Component Value Date/Time HEMOGLOBIN A1C - MEY 5.4 04/29/2023 03:42 PM BP Readings from Last 1 Encounters: 08/31/22 116/70 Currently on EVANGELINA-I for BP/Kidney protection BP controlled per last visit. A1C is controlled Recommend repeat albumin/creatinine in 3 months. Please approve if appropriate and agreeable. Thanks, Nestor Goodwin, PharmD Clinical Pharmacist [facility] [employer] [phone] 05/03/2023, 3:38 PM documented in this encounter Plan of Treatment Scheduled Orders Name Type Priority Associated Diagnoses Orde r Schedule ALBUMIN / CREATININE RATIO, URINE Lab Routine Prediabetes Expected: 08/01/2023, Expires: 05/03/2024 Health Maintenance Due Date Last Done Comments Hepatitis B (1 of 3 - 3-dose series) 1970 COVID-19 Vaccine (#1) 1970 HIV Screening 1985 Hepatitis C Screening 02/27/1988 DTaP,Tdap,and Td Vaccines (1 - Tdap) 1989 Cologuard 2015 Colonoscopy 2015 Colorectal Cancer Screening 2015 Fecal Occult Blood Test 2015 Sigmoidoscopy 2015 Depression Screening 03/26/2021 03/26/2020 Zoster Vaccines (2 of 2) 05/25/2022 03/30/2022 Influenza Vaccine (FLU shot) (#1) 2022 GFR 04/29/2024 04/29/2023, 03/26/2020 HbA1c 04/29/2024 04/29/2023, 03/26/2020 Albumin/Creatinine Ratio 04/29/2026 04/29/2023 Lipid Panel 04/29/2028 04/29/2023, 04/05/2023, 03/26/2020 GARDASIL-HPV IMMUNIZATION SERIES Aged Out No longer eligible b ased on patient's age to complete this topic MENINGOCOCCAL (MENACTRA/MENVEO) Aged Out No longer eligible b ased on patient's age to complete this topic Pneumococcal Vaccine: Pediatrics (0 to 5 Years) and At-Risk Patients (6 to 64 Years) Aged Out No longer eligible b ased on patient's age to complete this topic documented as of this encounter Medical Devices Not on filedocumented as of this encounter Visit Diagnoses Diagnosis Prediabetes- Primary Other abnormal glucose documented in this encounter Care Teams Inflatable Buildings Laminator Relationship Specialty Start Date End Date Nestor Kulkarni MD [address] [place] [address] PCP - General Family Medicine 03/26/20 documented as of this encounter
--- OUTSIDE RECORDS SUMMARY | 2023-06-26 08:07 | External Medical Summary | Summary of Care ---
Author Name Unknown Organization [facility] Address [address] [facility] [place] [address] Phone [phone] Care Team Providers Care Medical Diagnostic Radiographer Name Role Phone Nestor Kulkarni MD Primary Care Provider [phone] Reason for Referral * Evaluate & Treat - Unlimited Visits (Within 10 days (routine)) - Authorized Specialty Diagnoses / Procedures Referred By Contac t Referred To Contact Hematology/Oncology / Hematology Oncology Diagnoses Elevated hemoglobin (HCC) Nestor Kulkarni MD [address] [place] [address] Referral ID Status Reason Start Date Expiration Date Visits Requested Visits Authorized [id number] Authorized Specialty Services Required 06/03/[phone] Question Answer Referral Priority Within 10 days (routine) Where should this appointment be scheduled? [facility] Reason for Referral Abnormal CBC Reason for Visit * Reason Onset Date Comments Test Results 06/03/2023 Encounter Details Date Type Department Care Team (Late st Contact Info) Description 06/03/2023 Telephone Family Practice [facility] [address] [place] [address] Nestor Kulkarni MD [address] [place] [address] Test Results Allergies No known active allergiesdocumented as of this encounter (statuses as of 06/04/2023) Medications Medication Sig Dispensed Refills Start Date End Date Status Testosterone Enanthate 200 MG/ML Injection Solution Inject 250 mg as directed once a week. 0 Active metFORMIN HCl 1000 MG Oral Tablet (Glucophage) Take 1 Tablet by mouth 2 times a day with morning and evening meals. 0 Active Benzonatate 200 MG Oral CapsuleIndications: Acute cough Take 1 Capsule by mouth 3 times a day as needed for Cough. 50 Capsule 1 03/18/2023 Active Diclofenac Sodium 75 MG Oral Tablet Delayed Release (Voltaren) Take 1 Tablet by mouth in the morning and 1 Tablet before bedtime. With food.. 60 Tablet 1 04/27/2023 Active Phentermine HCl 37.5 MG Oral CapsuleIndications: Prediabetes Take 1 Capsule by mouth in the morning. 30 Capsule 0 04/27/2023 Active Tirzepatide 15 MG/0.5ML Subcutaneous Solution Pen-injector Inject 4 mg under the skin once a week. 0 Active Lisinopril 10 MG Oral Tablet (Prinivil) Take 1 Tablet by mouth in the morning. 30 Tablet 5 06/02/2023 Active Tamsulosin HCl 0.4 MG Oral Capsule (Flomax) Take 1 Capsule by mouth in the morning. 100 Capsule 1 06/02/2023 Active Doxycycline Hyclate 100 MG Oral Capsule Take 1 Capsule by mouth in the morning and 1 Capsule before bedtime. Do all this for 10 days. Until gone.. 20 Capsule 0 06/02/2023 06/12/2023 Active documented as of this encounter (statuses as of 06/04/2023) Active Problems Problem Noted Date Diagnosed Date Long-term current use of testosterone replacemen t therapy 04/06/2023 Lumbar degenerative disc disease 04/06/2023 BPH with obstruction/lower urinary tract symptom s 04/06/2023 Obesity, Class I, BMI 30.0-34.9 (see actual BMI) 04/03/2020 HTN, goal below 130/80 03/25/2020 documented as of this encounter (statuses as of 06/04/2023) Resolved Problems Problem Noted Date Diagnosed Date Resolved Date Chronic bilateral low back p ain without sciatica 12/22/2022 04/06/2023 Prediabetes 03/27/2020 05/06/2023 documented as of this encounter (statuses as of 06/04/2023) Immunizations Name Administration Dates Next Due Zoster [...] money to buy more. Never true 07/29/19 Within the past 12 months, t he [...] encounter Miscellaneous Notes * Telephone Encounter - Lyn Gacria LPN - 06/04/2023 1:23 PM EDT Pt aware. * Telephone Encounter - Nestor Kulkarni MD - 06/03/2023 12:37 PM EDT Labs are all okay except for his hemoglobin level which was a little high but has gone up a point in the past month. This is likely due to his testosterone use, however it can put him at increased risk of stroke. His x-ray showed that he probably has a resolving pneumonia and the doxycycline I gavehim should make him feel better. I do want him to see heme/onc about his hemoglobin though and a referral has been placed. Another possible cause would be untreated obstructive sleep apnea. Give patient message and then send to scheduling for heme/onc appointment please. Dr. Kulkarni documented in this encounter Plan of Treatment Upcoming Encounters Date Type Department Care Team ([place] st Contact Info) Description 06/17/2023 8:00 AM EDT Office Visit Hematology/Oncology [facility] [place] [address] [facility] [facility] [place] [address] Hannah Lemus CRNP [address] [place] [address] Scheduled Referrals Name Type Priority Associated Diagnoses Orde r Schedule HEMATOLOGY/ONCOLOGY REFERRAL OP Referral Within 10 days (routine) Elevated hemoglobin (HCC) Ordered: 06/03/2023 Health Maintenance Due Date Last Done Comments HIV Screening 1985 Hepatitis C Screening 02/27/1988 DTaP,Tdap,and Td Vaccines (1 - Tdap) 1989 Hepatitis B (1 of 3 - 19+ 3-dose series) 1989 Cologuard 2015 Colonoscopy 2015 Colorectal Cancer Screening 2015 Fecal Occult Blood Test 2015 Sigmoidoscopy 2015 Depression Screening 03/26/2021 03/26/2020 Zoster Vaccines (2 of 2) 05/25/2022 03/30/2022 COVID-19 Vaccine ( - season) 2022 Influenza Vaccine (FLU shot) (#1) 2022 GFR 04/29/2024 04/29/2023, 03/26/2020 Albumin/Creatinine Ratio 04/29/2026 04/29/2023 Diabetes Screening 04/29/2026 04/29/2023, 0 04/29/2023, 03/26/2020, Additional history exists Lipid Panel 04/29/2028 04/29/2023, 03/22, 03/26/2020 GARDASIL-HPV IMMUNIZATION SERIES Aged Out No longer eligible based on patient's age to complete this topic MENINGOCOCCAL (MENACTRA/MENVEO) Aged Out No longer eligible based on patient's age to complete this topic Pneumococcal Vaccine: Pediatrics (0 to 5 Years) and At-Risk Patients (6 to 64 Years) Aged Out No longer eligible based on patient's age to complete this topic documented as of this encounter Medical Devices Not on filedocumented as of this encounter Visit Diagnoses Diagnosis Elevated hemoglobin (HCC)- Primary Other hemoglobinopathies documented in this encounter Care Teams Medical Diagnostic Radiographer Relationship Specialty Start Date End Date Nestor Kulkarni MD [address] [place] [address] PCP - General Family Medicine 03/26/20 documented as of this encounter
--- OUTSIDE RECORDS SUMMARY | 2023-06-26 08:07 | External Medical Summary ---
Author Name Unknown Address Unknown Organization [id number]:[facility] [place] [address] [place] [address] Laboratory Report Ordering Provider Test Date Status MAGI ROGERS 06/23/2023 15:37:45 Final Observation Date Value Abnormality Reference (Units ) Status PSA 06/23/2023 15:37:45 0.77 <3.10 (ng/ mL) Final Performing Location [facility] [place] [address] [place] [address]
--- OUTSIDE RECORDS SUMMARY | 2023-06-26 08:07 | External Medical Summary ---
Author Name Unknown Address Unknown Organization [id number]:[facility] – [place] - [address] [facility] [address] Laboratory Report Ordering Provider Test Date Status SALVATORE ELLSWORTH 04/29/2023 15:43:38 Final Normal: <30 mg/g creatinine< br/>High: 30-300 mg/g creatinine
Very High: >300 mg/g creatinine
Nephrotic: >2200 mg/g creatinine Observation Date Value Abnormality Reference (Units ) Status Albumin, Urine 04/29/2023 15:43:38 38.00 (mg/dL) Final Creatinine, Urine 04/29/2023 15:43:38 222 (mg/dL) Final Albumin/Creatinine [Mass Ratio] in Urine 04/29/2023 15:43:38 171 Above high normal <30 (mg/g Creat) Final Performing Location [facility]ORY [facility] [place] - [address] [place] [address]
--- OUTSIDE RECORDS SUMMARY | 2023-06-26 08:07 | External Medical Summary ---
Author Name Unknown Address Unknown Organization [id number]:[facility] [place] [facility] [address] [facility] [address] Laboratory Report Ordering Provider Test Date Status MAYRA ELLSWORTH 06/02/2023 15:48:19 Final Observation Date Value Abnormality Reference (Units ) Status Borrelia burgdorferi IgG and IgM [Interpretation] in Serum by Immunoassay 06/02/2023 15:48:19 Negative Negative Final Performing Location [facility] [place] [facility] [address] [facility] [address]
--- OUTSIDE RECORDS SUMMARY | 2023-06-26 08:07 | External Medical Summary | Summary of Care ---
Author Name Unknown Organization [facility] Address [address] [place] [address] Phone [phone] Care Team Providers Care Coordinator Hotels Name Role Phone Nestor Kulkarni MD Primary Care Provider [phone] [phone] Reason for Visit * Reason Onset Date Comments Test Results 06/02/2023 XR CHEST 2 VIEWS Encounter Details Date Type Department Care Team (Late st Contact Info) Description 06/02/2023 Telephone Family Practice [facility] [address] [place] [address] Nestor Kulkarni MD [address] [place] [address] Test Results ( XR CHEST 2 VIEWS) Allergies No known active allergiesdocumented as of this encounter (statuses as of 06/08/2023) Medications Medication Sig Dispensed Refills Start Date [...] as of this encounter (statuses as of 06/08/2023) Active Problems Problem Noted Date Diagnosed Date Long-term current use of testosterone replacemen t therapy 04/06/2023 Lumbar degenerative disc disease 04/06/2023 BPH with obstruction/lower urinary tract symptom s 04/06/2023 Obesity, Class I, BMI 30.0-34.9 (see actual BMI) 04/03/2020 HTN, goal below 130/80 03/25/2020 documented as of this encounter (statuses as of 06/08/2023) Resolved Problems Problem Noted Date Diagnosed Date Resolved Date Chronic bilateral low back p ain without sciatica 12/22/2022 04/06/2023 Prediabetes 03/27/2020 05/06/2023 documented as of this encounter (statuses as of 06/08/2023) Immunizations Name Administration Dates Next Due Zoster [...] Miscellaneous Notes * Telephone Encounter - Nestor Kulkarni MD - 06/02/2023 9:38 PM EDT Noted. * Telephone Encounter - Thalia Horton TECH - 06/02/2023 9:33 PM EDT Hello- The radiologist discovered an unexpected or indeterminate finding on Madhu Rahman ([id number]) and asks that you review the following report. Study Type: XR CHEST 2 VIEWS Date of Study: 06/02/2023 IMPRESSION Minimal haziness in the mid lungs may reflect ground-glass opacities from infection. Please respond to this encounter to acknowledge receipt of this message and take responsibility to ensure this report is reviewed. Thank you, RICKY Owusu Client Service [facility] Diagnostic Medicine Thomas documented in this encounter Plan of Treatment Upcoming Encounters Date Type Department Care Team (Late st Contact Info) Description 06/17/2023 8:00 AM EDT Office Visit Hematology/Oncology [facility] [place] [address] [facility] [facility] [address] Hannah Lemus CRNP [address] [place] [address] Health Maintenance Due Date Last Done Comments HIV Screening 1985 Hepatitis C Screening 02/27/1988 DTaP,Tdap,and Td Vaccines (1 - Tdap) 1989 Hepatitis B (1 of 3 - 19+ 3-dose series) 1989 Cologuard 2015 Colonoscopy 2015 Colorectal Cancer Screening 2015 Fecal Occult Blood Test 2015 Sigmoidoscopy 2015 Depression Screening 03/26/2021 03/26/2020 Zoster Vaccines (2 of 2) 05/25/2022 03/30/2022 COVID-19 Vaccine (1 - 24 season) 2022 Influenza Vaccine (FLU shot) (#1) [...] Not on filedocumented as of this encounter Care Teams Coordinator Hotels Relationship Specialty Start Date End Date Nestor Kulkarni MD [address] [place] [address] PCP - General Family Medicine 03/26/20 documented as of this encounter
--- OUTSIDE RECORDS SUMMARY | 2023-06-26 08:07 | External Medical Summary | Summary of Care ---
Author Name Unknown Organization [facility] Address [address] [facility] [place] [address] Phone [phone] Care Team Providers Care Legal Adviser Name Role Phone Nestor Kulkarni MD Primary Care Provider [phone] Reason for Visit * Reason Comments Outpatient Testing Encounter Details Date Type Department Care Team (Late st Contact Info) Description 06/23/2023 4:00 PM EDT Laboratory Laboratory, [facility] [address] [place] [address] [facility] [address] [place] [address] [employer] Other*[id number]; Erythrocytosis; Long-term current use of testosterone replacement therapy Allergies No known active allergiesdocumented as of this encounter (statuses as of 06/23/2023) Medications Medication Sig Dispensed Refills Start Date End Date Status Testosterone Enanthate 200 MG/ML Injection Solution Inject 250 mg as directed once a week. 0 Active metFORMIN HCl 1000 MG Oral Tablet (Glucophage) Take 1 Tablet by mouth 2 times a day with morning and evening meals. 0 Active Benzonatate 200 MG Oral CapsuleIndications:A cute cough Take 1 Capsule by mouth 3 times a day as needed for Cough. 50 Capsule 1 03/18/2023 Active Diclofenac Sodium 75 MG Oral Tablet Delayed Release (Voltaren) Take 1 Tablet by mouth in the morning and 1 Tablet before bedtime. With food.. 60 Tablet 1 04/27/2023 Active Phentermine HCl 37.5 MG Oral CapsuleIndications:P rediabetes Take 1 Capsule by mouth in the [...] the morning. 100 Capsule 1 06/02/2023 Active documented as of this encounter (statuses as of 06/23/2023) Active Problems Problem Noted Date Diagnosed Date Long-term current use of testosterone replacemen t therapy 04/06/2023 Lumbar degenerative disc disease 04/06/2023 BPH with obstruction/lower urinary tract symptom s 04/06/2023 Obesity, Class I, BMI 30.0-34.9 (see actual BMI) 04/03/2020 HTN, goal below 130/80 03/25/2020 documented as of this encounter (statuses as of 06/23/2023) Resolved Problems Problem Noted Date Diagnosed Date Resolved Date Chronic bilateral low back p ain without sciatica 12/22/2022 04/06/2023 Prediabetes 03/27/2020 05/06/2023 documented as of this encounter (statuses as of 06/23/2023) Immunizations Name Administration Dates Next Due Zoster [...] on file documented as of this encounter Plan of Treatment Upcoming Encounters Date Type Department Care Team (Late st Contact Info) Description 07/01/2023 5:00 PM EDT Telemedicine Hematology/Oncology [facility] [place] [address] [place] [address] Hannah Lemus CRNP [address] [place] [address] Pending Results Name Type Priority Associated Diagnoses Date /Time MYCODE SUBSEQUENT ADULT Lab Routine [employer] Other*[id number] 06/23/2023 3:37 PM EDT TESTOSTERONE: TOTAL, FREE AND BIOAVAILABLE Lab STAT Erythrocytosis Long-term current use of testosterone replacement therapy 06/23/2023 3:37 PM EDT FERRITIN Lab STAT Erythrocytosis Long-term current use of testosterone replacement therapy 06/23/2023 3:37 PM EDT IRON SCREEN, INCLUDING TIBC Lab STAT Erythrocytosis Long-term current use of testosterone replacement therapy 06/23/2023 3:37 PM EDT PSA Lab STAT Erythrocytosis Long-term current use of testosterone replacement therapy 06/23/2023 3:37 PM EDT MYCODE SST1 Lab Routine [employer] Other*[id number] 06/23/2023 3:37 PM EDT MYCODE SST2 Lab Routine [employer] Other*[id number] 06/23/2023 3:37 PM EDT Health Maintenance Due Date Last Done Comments HIV Screening 1985 Hepatitis C Screening 02/27/1988 DTaP,Tdap,and Td Vaccines (1 - Tdap) 1989 Hepatitis B (1 of 3 - 19+ 3-dose series) 1989 Cologuard 2015 Colonoscopy 2015 Colorectal Cancer Screening 2015 Fecal Occult Blood Test 2015 Sigmoidoscopy 2015 Depression Screening 03/26/2021 03/26/2020 Zoster Vaccines (2 of 2) 05/25/2022 03/30/2022 COVID-19 Vaccine (1 - 2022-24 season) 2022 Influenza Vaccine (FLU shot) (Season Ended) 2023 GFR 04/29/2024 04/29/2023, 03/26/2020 Albumin/Creatinine Ratio 04/29/2026 [...] Not on filedocumented as of this encounter Procedures Procedure Name Priority Date/Time Associated Diagnosis Comments DIFFERENTIAL, AUTOMATED STAT 06/23/2023 3:37 PM EDT Erythrocytosis Long-term current use of testosterone replacement therapy CBC STAT 06/23/2023 3:37 PM EDT Erythrocytosis Long-term current use of testosterone replacement therapy CBC STAT 06/23/2023 3:37 PM EDT Erythrocytosis Long-term current use of testosterone replacement therapy documented in this encounter Results * (ABNORMAL) DIFFERENTIAL, AUTOMATED (06/23/2023 3:37 PM EDT) WBC 9.50 4.00 - 10.80 K/uL 06/23/2023 3:47 PM EDT [facility] Neutrophils % 67.4 40.0 - 75.0 % 06/23/2023 3:47 PM EDT [facility] Lymphocytes % 8.7(L) 18.0 - 42.0 % 06/23/2023 3:47 PM EDT [facility] Monocytes % 15.5(H) 1.0 - 11.0 % 06/23/2023 3:47 PM EDT [facility] Eosinophils % 8.2(H) 0.0 - 6.0 % 06/23/2023 3:47 PM EDT [facility] Basophils % 0.2 0.0 - 2.0 % 06/23/2023 3:47 PM EDT [facility] Absolute Neutrophils 6.40 1.80 - 7.70 K/uL 06/23/2023 3:47 PM EDT [facility] Absolute Lymphocytes 0.83(L) 1.00 - 4.80 K/ul 06/23/2023 3:47 PM EDT [facility] Absolute Monocytes 1.47(H) 0.00 - 1.10 K/uL 06/23/2023 3:47 PM EDT [facility] Absolute Eosinophils 0.78(H) 0.00 - 0.70 K/uL 06/23/2023 3:47 PM EDT [facility] Absolute Basophils 0.02 0.00 - 0.20 K/uL 06/23/2023 3:47 PM EDT [facility] Blood Venous blood specimen / Unknown Venipuncture / Unknown 06/23/2023 3:37 PM EDT 06/23/2023 3:37 PM EDT Hannah BARRAGAN LAB BLOOD ORDER [facility] [place] [address] * (ABNORMAL) CBC (06/23/2023 3:37 PM EDT) [facility] WBC 9.50 4.00 - 10.80 K/uL 06/23/2023 3:47 PM EDT [facility] RBC 5.76 4.50 - 5.25 M/uL 06/23/2023 3:47 PM EDT [facility] HGB 17.2(H) 14.0 - 16.8 g/dL 06/23/2023 3:47 PM EDT [facility] HCT 52.9(H) 40.0 - 48.4 % 06/23/2023 3:47 PM EDT [facility] MCV 91.8 82.0 - 99.5 fL 06/23/2023 3:47 PM EDT [facility] MCH 29.9 27.0 - 34.0 pg 06/23/2023 3:47 PM EDT [facility] MCHC 32.5 32.0 - 36.0 g/dL 06/23/2023 3:47 PM EDT [facility] RDW 13.9 11.5 - 15.5 % 06/23/2023 3:47 PM EDT [facility] PLT 227 140 - 400 K/uL 06/23/2023 3:47 PM EDT [facility] MPV 12.6 6.6 - 11.1 fL 06/23/2023 3:47 PM EDT [facility] Blood Venous blood specimen / Unknown Venipuncture / Unknown 06/23/2023 3:37 PM EDT 06/23/2023 3:37 PM EDT Hannah BARRAGAN LAB BLOOD ORDER [facility] [address] [place] [address] documented in this encounter Visit Diagnoses Diagnosis MyCode Research Other*[id number] Erythrocytosis Polycythemia, secondary Long-term current use of testosterone replacement therapy documented in this encounter Care Teams Legal Adviser Relationship Specialty Start Date End Date Nestor Kulkarni MD [address] [place] [address] PCP - General Family Medicine 03/26/20 documented as of this encounter
--- OUTSIDE RECORDS SUMMARY | 2023-06-26 08:07 | External Medical Summary ---
Author Name Unknown Address Unknown Organization [id number]:[facility]ATORY [facility] [place] - [facility] [address] [place] [address] Laboratory Report Ordering Provider Test Date Status MAYRA ELLSWORTH 06/02/2023 15:48:19 Final Observation Date Value Abnormality Reference (Units ) Status WBC, Total 06/02/2023 15:48:19 7.28 4.00-10.8 0 (K/uL) Final RBC 06/02/2023 15:48:19 5.94 4.50-5.25 (M/uL) Final Hemoglobin 06/02/2023 15:48:19 18.1 Above high normal 1 4.0-16.8 (g/dL) Final Anemia reflex testing trigge rs on a HGB < 12.0 for Females and HGB < 13.0 for Males in accordance with the WHO Anemia Guidelines
Anemia reflex testing triggers on a HGB < 12.0 for Females and HGB < 13.0 for Males in accordance with the WHO Anemia Guidelines HCT 06/02/2023 15:48:19 57.2 Above hi gh normal 40.0-48.4 (%) Final MCV 06/02/2023 15:48:19 96.3 82.0-99.5 (fL) Final MCH 06/02/2023 15:48:19 30.5 27.0-34.0 (pg) Final MCHC 06/02/2023 15:48:19 31.6 32.0-36.0 (g/dL) Final RDW 06/02/2023 15:48:19 14.3 11.5-15.5 (%) Final Platelets 06/02/2023 15:48:19 248 140-400 (K /uL) Final MPV 06/02/2023 15:48:19 12.7 6.6-11.1 ( fL) Final Nucleated erythrocytes/100 leukocytes [Ratio] in Blood by Automated count 06/02/2023 15:48:19 0 <=0 (/100 WBCs) Final Performing Location LAB[facility]ATORY [facility] - [address] [facility] [address]
--- OUTSIDE RECORDS SUMMARY | 2023-06-26 08:07 | External Medical Summary ---
Author Name Unknown Address Unknown Organization [id number]:[facility] [place] [address] [facility] [address] Laboratory Report Ordering Provider Test Date Status MAGI ROGERS 06/23/2023 15:37:45 Final Observation Date Value Abnormality Reference (Units ) Status Ferritin 06/23/2023 15:37:45 197 30-400 (ng /mL) Final Performing Location [facility] [place] [address] [facility] [address] [facility] [address]
--- OUTSIDE RECORDS SUMMARY | 2023-06-26 08:07 | External Medical Summary ---
Author Name Unknown Address Unknown Organization [id number]:[facility]ATORY [facility] - [facility] [address] [facility] [address] Laboratory Report Ordering Provider Test Date Status MAGI ROGERS 06/23/2023 15:37:45 Final Observation Date Value Abnormality Reference (Units ) Status Albumin 06/23/2023 15:37:45 4.2 3.8-5.0 (g/dL) Final Sex Hormone Binding Globulin 06/23/2023 15:37:45 18 12-91 (nmol/L) Final Testosterone [Mass/volume] in Serum or Plasma 06/23/2023 15:37:45 621.4 193.0-740.0 (ng/dL) Final Free Testosterone, calculated 06/23/2023 15:37:45 183.1 Above high normal 35.0-130.0 (pg/mL) Final Bioavailable Testosterone, calculated 06/23/2023 15:37:45 419.5 Above high normal 79.0-335.0 (ng/dL) Final Performing Location LABORATORY [facility] - [facility] [place] [address]
--- OUTSIDE RECORDS SUMMARY | 2023-06-26 08:07 | External Medical Summary ---
Author Name Unknown Address Unknown Organization [id number]:LABORATORY [facility] [place] - [address] [place] [address] Laboratory Report Ordering Provider Test Date Status HELIO AGUDELO 06/23/2023 15:37:45 Final Observation Date Value Abnormality Reference (Units ) Status MYCODE SPECIMEN-SST 06/23/2023 15:37:45 Freezing of extracted DNA, whole blood and/or serum. Final Performing Location LABORATORY [facility] - [address] [place] [address]
--- OUTSIDE RECORDS SUMMARY | 2023-06-26 08:07 | External Medical Summary ---
Author Name Unknown Address Unknown Organization : Laboratory Report Ordering Provider Test Date Status MAYRA ELLSWORTH 06/02/2023 15:48:19 Final Observation Date Value Abnormality Reference (Units ) Status Anaplasma phagocytophilum DNA [Presence] in Blood by YOSELYN with probe detection 06/02/2023 15:48:19 Not Detected Not Detected Final This test was developed and its analytical performance
characteristics have been determined by [facility]
[place] It has
not been cleared or approved by the U.S. Food and Drug
Administration. This assay has been validated pursuant
to the CLIA regulations and is used for clinical
purposes.

Test Performed at:
[facility]
[address]
[place] [address]
Devin Granados M.D., Ph.D.,Director of Laboratories Performing Location
--- OUTSIDE RECORDS SUMMARY | 2023-06-26 08:07 | External Medical Summary ---
Author Name Unknown Address Unknown Organization K01:LAB[facility]ATORY [facility] [place] - [address] [place] [address] Laboratory Report Ordering Provider Test Date Status MAYRA ELLSWORTH 06/02/2023 15:48:19 Final Observation Date Value Abnormality Reference (Units ) Status Albumin 06/02/2023 15:48:19 4.0 3.8-5.0 (g/dL) Final AST (Aspartate aminotransferase) 06/02/2023 15:48:19 26 10-50 (U/L) Final Alk Phos 06/02/2023 15:48:19 65 35-130 (U/L) Final ALT (Alanine aminotransferase) 06/02/2023 15:48:19 47 10-50 (U/L) Final Bilirubin, Total 06/02/2023 15:48:19 0.2 <=1.2 (mg/dL) Final Bilirubin, Direct 06/02/2023 15:48:19 <0.2 0.0-0.3 (mg/dL) Final Protein 06/02/2023 15:48:19 6.8 6.0-8.3 (g/dL) Final Performing Location LABORATORY [facility] - [address] [place] [address]
--- OUTSIDE RECORDS SUMMARY | 2023-06-26 08:07 | External Medical Summary ---
Author Name Unknown Address Unknown Organization : Laboratory Report Ordering Provider Test Date Status MAGI ROGERS 06/17/2023 08:59:43 Final Observation Date Value Abnormality Reference (Units ) Status ERYTHROPOIETIN (EPO) 06/17/2023 08:59:43 9.1 2.6-18.5 (mIU/mL) Final
Test Performed at:
[facility] [place]
[address] [place] [address]
Devin Granados M.D., Ph.D.,Director of Laboratories Performing Location
--- OUTSIDE RECORDS SUMMARY | 2023-06-26 08:07 | External Medical Summary ---
Author Name Unknown Address Unknown Organization [id number][facility] [address] [place] [address] Laboratory Report Ordering Provider Test Date Status MAGI ROGERS 06/23/2023 15:37:45 Final Observation Date Value Abnormality Reference (Units ) Status WBC, Total 06/23/2023 15:37:45 9.50 4.00-10.8 0 (K/uL) Final RBC 06/23/2023 15:37:45 5.76 4.50-5.25 (M/uL) Final Hemoglobin 06/23/2023 15:37:45 17.2 Above high normal 1 4.0-16.8 (g/dL) Final HCT 06/23/2023 15:37:45 52.9 Above high normal 40 .0-48.4 (%) Final MCV 06/23/2023 15:37:45 91.8 82.0-99.5 (fL) Final MCH 06/23/2023 15:37:45 29.9 27.0-34.0 (pg) Final MCHC 06/23/2023 15:37:45 32.5 32.0-36.0 (g/dL) Final RDW 06/23/2023 15:37:45 13.9 11.5-15.5 (%) Final Platelets 06/23/2023 15:37:45 227 140-400 (K /uL) Final MPV 06/23/2023 15:37:45 12.6 6.6-11.1 ( fL) Final Performing Location [facility] - [address] [place] [address]
--- OUTSIDE RECORDS SUMMARY | 2023-06-26 08:07 | External Medical Summary | Summary of Care ---
Author Name Unknown Organization [facility] Address [address] [facility] [place] [address] Phone [phone] Care Team Providers Care Women Specialist Name Role Phone Nestor Kulkarni MD Primary Care Provider [phone] Reason for Visit * Reason Comments Cough On and off since Jan Encounter Details Date Type Department Care Team (Late st Contact Info) Description 06/02/2023 3:00 PM EDT Office Visit Family Practice [facility] [address] [place] [address] Nestor Kulkarni MD [address] [place] [address] Subacute bronchitis*; Long-term current use of testosterone replacement therapy; Lumbar degenerative disc disease; HTN, goal below 130/80 Allergies No known active allergiesdocumented as of this encounter (statuses as of 06/03/2023) Medications Medication Sig Dispensed Refills Start Date End Date Status Testosterone Enanthate 200 MG/ML Injection Solution Inject 250 mg as directed once a week. 0 Active metFORMIN HCl 1000 MG Oral Tablet (Glucophage) Take 1 Tablet by mouth 2 times a day with morning and evening meals. 0 Active Benzonatate 200 MG Oral CapsuleIndications :Acute cough Take 1 Capsule by mouth 3 times a day as needed for Cough. 50 Capsule 1 03/18/2023 Active Diclofenac Sodium 75 MG Oral Tablet Delayed Release (Voltaren) Take 1 Tablet by mouth in the morning and 1 Tablet before bedtime. With food.. 60 Tablet 1 04/27/2023 Active Phentermine HCl 37.5 MG Oral CapsuleIndications :Prediabetes Take 1 Capsule by mouth in the [...] days. Until gone.. 20 Capsule 0 06/02/2023 Active Semaglutide(0.25 or 0.5MG/DOS) 2 MG/3ML Solution Pen-injector (Ozempic) Inject 0.25 mg under the skin once a week. 3 mL 5 08/31/2022 Discontinue d(Discharge d) Tamsulosin HCl 0.4 MG Oral Capsule (Flomax) Take 1 Capsule by mouth in the morning. 100 Capsule 1 01/04/2023 4 Discontinue d(Refill) Lisinopril 10 MG Oral Tablet (Prinivil) Take 1 Tablet by mouth in the morning. 30 Tablet 5 03/18/2023 4 Discontinue d(Refill) documented as of this encounter (statuses as of 06/03/2023) Active Problems Problem Noted Date Diagnosed Date Long-term current use of testosterone replacemen t therapy 04/06/2023 Lumbar degenerative disc disease 04/06/2023 BPH with obstruction/lower urinary tract symptom s 04/06/2023 Obesity, Class I, BMI 30.0-34.9 (see actual BMI) 04/03/2020 HTN, goal below 130/80 03/25/2020 documented as of this encounter (statuses as of 06/03/2023) Resolved Problems Problem Noted Date Diagnosed Date Resolved Date Chronic bilateral low back p ain without sciatica 12/22/2022 04/06/2023 Prediabetes 03/27/2020 05/06/2023 documented as of this encounter (statuses as of 06/03/2023) Immunizations Name Administration Dates Next Due Zoster Vaccine Recombinant (Shingrix) 03/30/2022 documented as of this encounter Social History Tobacco Use Types Packs/Day Years Used Date Smoking Tobacco: Never Smokeless Tobacco: Former Chew Tobacco Cessation:Counseling Given: Not Answered Alcohol Use Standard Drinks/Week Comments Yes 0 [...] on file documented as of this encounter Last Filed Vital Signs Vital Sign Reading Time Taken Comments Blood Pressure 134/86 06/02/2023 2:44 PM EDT Pulse 84 06/02/2023 2:44 PM EDT Temperature 36.4 C (97.5 F) 06/02/2023 2:44 PM ED T Respiratory Rate 16 06/02/2023 2:44 PM EDT Oxygen Saturation 95% 06/02/2023 2:44 PM EDT room air Inhaled Oxygen Concentration - - Weight 103.8 kg (228 lb 12.8 oz) 06/02/2023 2:44 PM EDT Height - - Body Mass Index 31.91 08/31/2022 3:24 PM EDT documented in this encounter Progress Notes * Nestor Kulkarni MD - 06/02/2023 11:49 PM EDT SUBJECTIVE: Madhu Rahman is a 53 year old male. Chief Complaint Patient presents with Cough On and off since January 2023 HPI: Madhu is a 53 year old male who is here today complaining of constant flu like symptoms for approximately the past 5 months. He is currently on an GLP 1 agonist as well as supplemental testosterone, both prescribed by an outside physician. He notes that he feels wheezy at times. He is unsure whether he has had covid. He wonders if he has Lyme disease. He does not recall a tick bite. Patient Active Problem List Diagnosis Code HTN, goal below 130/80 I10 Obesity, Class I, BMI 30.0-34.9 (see actual BMI) E66.9 Long-term current use of testosterone replacement therapy Z79.890 Lumbar degenerative disc disease M51.36 BPH with obstruction/lower urinary tract symptoms N40.1, N13.8 Current Outpatient Medications Medication Sig Dispense Refill Testosterone Enanthate 200 MG/ML Injection Solution Inject 250 mg as directed once a week. metFORMIN HCl 1000 MG Oral Tablet (Glucophage) Take 1 Tablet by mouth 2 times a day with morning and evening meals. Benzonatate 200 MG Oral Capsule Take 1 Capsule by mouth 3 times a day as needed for Cough. 50 Capsule 1 Diclofenac Sodium 75 MG Oral Tablet Delayed Release (Voltaren) Take 1 Tablet by mouth in the morning and 1 Tablet before bedtime. With food.. 60 Tablet 1 Phentermine HCl 37.5 MG Oral Capsule Take 1 Capsule by mouth in the morning. 30 Capsule 0 Tirzepatide 15 MG/0.5ML Subcutaneous Solution Pen-injector Inject 4 mg under the skin once a week. Lisinopril 10 MG Oral Tablet (Prinivil) Take 1 Tablet by mouth in the morning. 30 Tablet 5 Tamsulosin HCl 0.4 MG Oral Capsule (Flomax) Take 1 Capsule by mouth in the morning. 100 Capsule 1 Doxycycline Hyclate 100 MG Oral Capsule Take 1 Capsule by mouth in the morning and 1 Capsule beforebedtime. Do all this for 10 days. Until gone.. 20 Capsule 0 No current facility-administered medications for this visit. Allergy: Review of patient's allergies indicates: No Known Allergies OBJECTIVE: BP 134/86 (BP Site: Left Arm, BP Position: Sitting, BP Cuff Size: Large) | Pulse 84 | Temp 36.4 C(97.5 F) (Tympanic) | Resp 16 | Wt 103.8 kg (228 lb 12.8 oz) | SpO2 95% Comment: room air | BMI 31.91 kg/m | BSA 2.28 m \\Gen Gen: nad Lungs: ctab Lymph: no palpable adenopathy Heart: rrr, no mrg Skin: no rashes ASSESSMENT AND PLAN: (J20.9) Subacute bronchitis (primary encounter diagnosis) Plan: HEPATIC FUNCTION PANEL, CBC WITH WBC DIFFERENTIAL AND ANEMIA REFLEX WORKUP, LYME DISEASE ANTIBODY SCREEN WITH REFLEX TO CONFIRMATION, ANAPLASMA PHAGOCYTOPHILUM DNA, QL REAL-TIME PCR, XR CHEST 2 VIEWS -start doxy empirically and adjust therapy based on above results (Z79.890) Long-term current use of testosterone replacement therapy Plan: I do not prescribe him this (M51.36) Lumbar degenerative disc disease Plan: quiescent (I10) HTN, goal below 130/80 Plan: stable Follow up as needed. No other complaints were offered at this time. Nestor Kulkarni MD documented in this encounter Nursing Notes * Luis Go RN - 06/02/2023 2:47 PM EDT Chief Complaint Patient presents with Cough On and off since January 2023 documented in this encounter Plan of Treatment Pending Results Name Type Priority Associated Diagnoses Date /Time HEPATIC FUNCTION PANEL Lab Routine Subacute bronchitis 06/02/2023 3:48 PM EDT CBC WITH WBC DIFFERENTIAL AND ANEMIA REFLEX WORKUP Lab Routine Subacute bronchitis 06/02/2023 3:48 PM EDT LYME DISEASE ANTIBODY SCREEN WITH REFLEX TO CONFIRMATION Lab Routine Subacute bronchitis 06/02/2023 3:48 PM EDT ANAPLASMA PHAGOCYTOPHILUM DNA, QL REAL-TIME PCR Lab Routine Subacute bronchitis 06/02/2023 3:48 PM EDT Scheduled Orders Name Type Priority Associated Diagnoses Orde r Schedule HEPATIC FUNCTION PANEL Lab Routine Subacute bronchitis Expected: 06/02/2023 (Approximate), Expires: 06/01/2024 CBC WITH WBC DIFFERENTIAL AND ANEMIA REFLEX WORKUP Lab Routine Subacute bronchitis Expected: 06/02/2023 (Approximate), Expires: 06/01/2024 LYME DISEASE ANTIBODY SCREEN WITH REFLEX TO CONFIRMATION Lab Routine Subacute bronchitis Expected: 06/02/2023, Expires: 06/01/2024 ANAPLASMA PHAGOCYTOPHILUM DNA, QL REAL-TIME PCR Lab Routine Subacute bronchitis Expected: 06/02/2023, Expires: 06/01/2024 Health Maintenance Due Date Last Done Comments HIV Screening 1985 Hepatitis C Screening 02/27/1988 DTaP,Tdap,and Td Vaccines (1 - Tdap) 1989 Hepatitis B (1 of 3 - 19+ 3-dose series) 1989 Cologuard 2015 Colonoscopy 2015 Colorectal Cancer Screening 2015 Fecal Occult Blood Test 2015 Sigmoidoscopy 2015 Depression Screening 03/26/2021 03/26/2020 Zoster Vaccines (2 of 2) 05/25/2022 03/30/2022 COVID-19 Vaccine (1 - 2022- season) 2022 Influenza Vaccine (FLU shot) (#1) [...] Procedure Name Priority Date/Time Associated Diagnosis Comments XR CHEST 2 VIEWS Routine 06/02/2023 3:41 PM EDT Subacute bronchitis documented in this encounter Results * XR CHEST 2 VIEWS (06/02/2023 3:41 PM EDT) Anatomical Region Laterality Modality Chest Computed Radiogr aphy 06/02/2023 9:32 PM EDT Impressions 06/02/2023 9:30 PM EDT IMPRESSION Minimal haziness in the mid lungs may reflect ground-glass opacities from infection. Narrative 06/02/2023 9:30 PM EDT EXAM XR CHEST 2 VIEWS - 06/02/2023 3:41 pm HISTORY "history of covid" TECHNIQUE Frontal and lateral views of the chest were obtained. COMPARISON None. FINDINGS Minimal hazy opacities in the mid lungs may reflect ground-glass opacities from infection. No pleural effusion or pneumothorax. Normal heart size. Clips in the right lateral chest wall. Procedure Note Davian Crenshaw MD - 06/02/2023 EXAM XR CHEST 2 VIEWS - 06/02/2023 3:41 pm HISTORY "history of covid" TECHNIQUE Frontal and lateral views of the chest were obtained. COMPARISON None. FINDINGS Minimal hazy opacities in the mid lungs may reflect ground-glass opacitiesfrom infection. No pleural effusion or pneumothorax. Normal heartsize. Clips in the right lateral chest wall. IMPRESSION IMPRESSION Minimal haziness in the mid lungs may reflect ground-glass opacities frominfection. Nestor Kulkarni MD RADIOLOGY (RAD [facility]) documented in this encounter Visit Diagnoses Diagnosis Subacute bronchitis- Primary Acute bronchitis Long-term current use of testosterone replacement therapy Lumbar degenerative disc disease Degeneration of lumbar or lumbosacral intervertebral disc HTN, goal below 130/80 Unspecified essential hypertension documented in this encounter Care Teams Women Specialist Relationship Specialty Start Date End Date Nestor Kulkarni MD [address] [facility] [place] [address] PCP - General Family Medicine 03/26/20 documented as of this encounter
--- OUTSIDE RECORDS SUMMARY | 2023-06-26 08:07 | External Medical Summary ---
Author Name Unknown Address Unknown Organization [id number]:LABORATORY [facility] [place] - [address] [place] [address] Laboratory Report Ordering Provider Test Date Status MAGI ROGERS 06/23/2023 15:37:45 Final Observation Date Value Abnormality Reference (Units ) Status Iron 06/23/2023 15:37:45 25 Below low normal 45-176 (ug/dL) Final Iron-binding capacity 06/23/2023 15:37:45 249 Below low normal 250-425 (ug/dL) Final Transferrin Sat % 06/23/2023 15:37:45 10 Below low normal 15-55 (%) Final Performing Location LABORATORY [facility] [place] - [facility] [place] [address]
--- OUTSIDE RECORDS SUMMARY | 2023-06-26 08:07 | External Medical Summary | Summary of Care ---
Author Name Unknown Organization [facility] Address [address] [facility] [place] [address] Phone [phone] Care Team Providers Care Lollypop Machine Operator Name Role Phone Nestor Kulkarni MD Primary Care Provider [phone] Reason for Visit * Reason Onset Date Comments Abnormal Lab Results 05/03/2023 Encounter Details Date Type Department Care Team (Late st Contact Info) Description 05/03/2023 Telephone Family Practice [facility] [address] [place] [address] Nestor Kulkarni MD [address] [place] [address] Abnormal Lab Results Allergies No known active allergiesdocumented as of this encounter (statuses as of 05/06/2023) Medications Medication Sig Dispensed Refills Start Date [...] as of this encounter (statuses as of 05/06/2023) Active Problems Problem Noted Date Diagnosed Date Long-term current use of testosterone replacemen t therapy 04/06/2023 Lumbar degenerative disc disease 04/06/2023 BPH with obstruction/lower urinary tract symptom s 04/06/2023 Obesity, Class I, BMI 30.0-34.9 (see actual BMI) 04/03/2020 HTN, goal below 130/80 03/25/2020 documented as of this encounter (statuses as of 05/06/2023) Resolved Problems Problem Noted Date Diagnosed Date Resolved Date Chronic bilateral low back p ain without sciatica 12/22/2022 04/06/2023 Prediabetes 03/27/2020 05/06/2023 documented as of this encounter (statuses as of 05/06/2023) Immunizations Name Administration Dates Next Due Zoster [...] Telephone Encounter - Nestor Goodwin RPh - 05/06/2023 11:32 AM EST Contacted patient to advise on repeat Alb/Cr in 3 months. Patient did confirm he has been battling some minor illness this winter, possibly not drinking enough water. Patient states he just started to feel better this week. Will recheck alb/cr in 3 months. Patient is agreeable and understanding. Thanks, Nestor Goodwin PharmD Clinical Pharmacist [facility] [phone] 05/06/2023, 11:34 AM * Telephone Encounter - Nestor Goodwin RPh - 05/03/2023 3:27 PM EST Images from the original note were not included. Patient has elevated protein in urine. Hemoglobin AIC Results: Lab Results Component Value Date/Time HEMOGLOBIN A1C - LINOER 5.4 04/29/2023 03:42 PM BP Readings from Last 1 Encounters: 08/31/22 116/70 Currently on EVANGELINA-I for BP/Kidney protection BP controlled per last visit. A1C is controlled Recommend repeat albumin/creatinine in 3 months. Please approve if appropriate and agreeable. Thanks, Nestor Goodwin PharmD Clinical Pharmacist [facility] [phone] 05/03/2023, 3:38 PM documented in this encounter [...] glucose documented in this encounter Care Teams Lollypop Machine Operator Relationship Specialty Start Date End Date Nestor Kulkarni MD [address] [place] [address] PCP - General Family Medicine 03/26/20 documented as of this encounter
--- OUTSIDE RECORDS SUMMARY | 2023-06-26 08:07 | External Medical Summary ---
Author Name Unknown Address Unknown Organization [id number]:LABORATORY [facility] [place] - [address] [facility] [address] Laboratory Report Ordering Provider Test Date Status HELIO AGUDELO 06/02/2023 15:48:19 Final Observation Date Value Abnormality Reference (Units ) Status MYCODE SPECIMEN-SST 06/02/2023 15:48:19 Freezing of extracted DNA, whole blood and/or serum. Final Performing Location LABORATORY [facility] [place] - [address] [facility] [address]
--- OUTSIDE RECORDS SUMMARY | 2023-06-26 08:07 | External Medical Summary ---
Author Name Unknown Address Unknown Organization K01:LABORATORY [facility] [place] - [address] [facility] [address] Laboratory Report Ordering Provider Test Date Status HELIO AGUDELO 06/02/2023 15:48:19 Final Observation Date Value Abnormality Reference (Units ) Status MYCODE SPECIMEN-SST 06/02/2023 15:48:19 Freezing of extracted DNA, whole blood and/or serum. Final Performing Location LABORATORY [facility] [place] - [address] [facility] [address]
--- OUTSIDE RECORDS SUMMARY | 2023-06-26 08:07 | External Medical Summary | Summary of Care ---
Author Name Unknown Organization [facility] Address [address] [facility] [place] [address] Phone [phone] Care Team Providers Care Direct Marketing Analyst Name Role Phone Nestor Kulkarni MD Primary Care Provider [phone] Reason for Visit * Reason Comments Outpatient Testing Encounter Details Date Type Department Care Team (Late st Contact Info) Description 06/02/2023 4:10 PM EDT Laboratory Laboratory, [facility] [address] [facility] [place] [address] [facility] [address] [facility] [address] [employer] Other*[id number]; Subacute bronchitis Allergies No known active allergiesdocumented as of this encounter (statuses as of 06/02/2023) Medications Medication Sig Dispensed Refills Start Date [...] as of this encounter (statuses as of 06/02/2023) Active Problems Problem Noted Date Diagnosed Date Long-term current use of testosterone replacemen t therapy 04/06/2023 Lumbar degenerative disc disease 04/06/2023 BPH with obstruction/lower urinary tract symptom s 04/06/2023 Obesity, Class I, BMI 30.0-34.9 (see actual BMI) 04/03/2020 HTN, goal below 130/80 03/25/2020 documented as of this encounter (statuses as of 06/02/2023) Resolved Problems Problem Noted Date Diagnosed Date Resolved Date Chronic bilateral low back p ain without sciatica 12/22/2022 04/06/2023 Prediabetes 03/27/2020 05/06/2023 documented as of this encounter (statuses as of 06/02/2023) Immunizations Name Administration Dates Next Due Zoster [...] as of this encounter Plan of Treatment Pending Results Name Type Priority Associated Diagnoses Date /Time MYCODE INITIAL ADULT Lab Routine [employer] Other*[id number] 06/02/2023 3:48 PM EDT HEPATIC FUNCTION PANEL Lab Routine Subacute bronchitis 06/02/2023 3:48 PM EDT CBC WITH WBC DIFFERENTIAL AND ANEMIA REFLEX WORKUP Lab Routine Subacute bronchitis 06/02/2023 3:48 PM EDT LYME DISEASE ANTIBODY SCREEN WITH REFLEX TO CONFIRMATION Lab Routine Subacute bronchitis 06/02/2023 3:48 PM EDT ANAPLASMA PHAGOCYTOPHILUM DNA, QL REAL-TIME PCR Lab Routine Subacute bronchitis 06/02/2023 3:48 PM EDT MYCODE INITIAL ADULT-PINK Lab Routine [employer] Other*[id number] 06/02/2023 3:48 PM EDT MYCODE SST1 Lab Routine [employer] Other*[id number] 06/02/2023 3:48 PM EDT MYCODE SST2 Lab Routine [employer] Other*[id number] 06/02/2023 3:48 PM EDT ANEMIA CBC Lab Routine Subacute bronchitis 06/02/2023 3:48 PM EDT DIFFERENTIAL, AUTOMATED Lab Routine Subacute bronchitis 06/02/2023 3:48 PM EDT ANEMIA REFLEX CHEMISTRY HOLD Lab Routine Subacute bronchitis 06/02/2023 3:48 PM EDT LYME DISEASE ANTIBODY SCREEN Lab Routine Subacute bronchitis 06/02/2023 3:48 PM EDT Health Maintenance Due Date Last Done Comments HIV Screening 1985 Hepatitis C Screening 02/27/1988 DTaP,Tdap,and Td Vaccines (1 - Tdap) 1989 Hepatitis B (1 of 3 - 19+ 3-dose series) 1989 Cologuard 2015 Colonoscopy 2015 Colorectal Cancer Screening 2015 Fecal Occult Blood Test 2015 Sigmoidoscopy 2015 Depression Screening 03/26/2021 03/26/2020 Zoster Vaccines (2 of 2) 05/25/2022 03/30/2022 COVID-19 Vaccine (24 season) 2022 Influenza Vaccine (FLU shot) (#1) [...] as of this encounter Visit Diagnoses Diagnosis [employer] Other*[id number] Subacute bronchitis Acute bronchitis documented in this encounter Care Teams Direct Marketing Analyst Relationship Specialty Start Date End Date Nestor Kulkarni MD [address] [place] [address] PCP - General Family Medicine 03/26/20 documented as of this encounter
--- OUTSIDE RECORDS SUMMARY | 2023-06-26 08:07 | External Medical Summary ---
Author Name Unknown Address Unknown Organization K01:LABORATORY [facility] [place] [facility] [address] [place] [address] Laboratory Report Ordering Provider Test Date Status JODEEMAYRA 06/02/2023 15:48:19 Final Observation Date Value Abnormality Reference (Units ) Status SYNC LEUKOCYTES IN BLOOD BY AUTOMATED COUNT 06/02/2023 15:48:19 7.28 4.00-10.80 (K/uL) Final Segs 06/02/2023 15:48:19 64.4 40.0-75.0 (%) Final Lymphs % 06/02/2023 15:48:19 11.7 Below low normal 18.0-42.0 (%) Final Monos 06/02/2023 15:48:19 19.2 Above high normal 1.0-11.0 (%) Final Eosinophils 06/02/2023 15:48:19 3.4 0.0-6.0 (%) Final Basos 06/02/2023 15:48:19 0.5 0.0-2.0 (%) Final Immature Granulocyte, Percent 06/02/2023 15:48:19 0.8 0.0-2.0 (%) Final Absolute Segs 06/02/2023 15:48:19 4.68 1.80-7.70 (K/uL) Final Lymphs, absolute 06/02/2023 15:48:19 0.85 Below low normal 1.00-4.80 (K/ul) Final Monos, Abs 06/02/2023 15:48:19 1.40 Above high normal 0.00-1.10 (K/uL) Final Eos, Abs 06/02/2023 15:48:19 0.25 0.00-0.70 (K/uL) Final Basos, Abs 06/02/2023 15:48:19 0.04 0.00-0.20 (K/uL) Final Immature Granulocytes, Number 06/02/2023 15:48:19 0.06 0.00-0.20 (K/uL) Final Performing Location LABORATORY [facility] [place] - [address] [facility] [address]
--- OUTSIDE RECORDS SUMMARY | 2023-06-26 08:07 | External Medical Summary | Summary of Care ---
Author Name Unknown Organization [facility] Address [address] [place] [address] Phone [phone] Care Team Providers Care Cvor Nurse Name Role Phone Nestor Kulkarni MD Primary Care Provider [phone] Reason for Visit * Reason Comments Consultation Elevated Hemoglobin * Evaluate & Treat - Unlimited Visits (Within 10 days (routine)) - Authorized Specialty Diagnoses / Procedures Referred By Contac t Referred To Contact Hematology/Oncology / Hematology Oncology Diagnoses Elevated hemoglobin (HCC) Nestor Kulkarni MD [address] [place] [address] Referral ID Status Reason Start Date Expiration Date Visits Requested Visits Authorized [id number] Authorized Specialty Services Required 06/03/[phone] Encounter Details Date Type Department Care Team (Late st Contact Info) Description 06/17/2023 8:00 AM EDT Office Visit Hematology/Oncology [facility] [address] [facility] [place] [id number] Hannah Lemus CRNP [address] [facility] [place] [address] Erythrocytosis*; Long-term current use of testosterone replacement therapy Allergies No known active allergiesdocumented as of this encounter (statuses as of 06/25/2023) Medications Medication Sig Dispensed Refills Start Date [...] as of this encounter (statuses as of 06/25/2023) Active Problems Problem Noted Date Diagnosed Date Long-term current use of testosterone replacemen t therapy 04/06/2023 Lumbar degenerative disc disease 04/06/2023 BPH with obstruction/lower urinary tract symptom s 04/06/2023 Obesity, Class I, BMI 30.0-34.9 (see actual BMI) 04/03/2020 HTN, goal below 130/80 03/25/2020 documented as of this encounter (statuses as of 06/25/2023) Resolved Problems Problem Noted Date Diagnosed Date Resolved Date Chronic bilateral low back p ain without sciatica 12/22/2022 04/06/2023 Prediabetes 03/27/2020 05/06/2023 documented as of this encounter (statuses as of 06/25/2023) Immunizations Name Administration Dates Next Due Zoster [...] Sign Reading Time Taken Comments Blood Pressure 150/97 06/17/2023 8:08 AM EDT Pulse 75 06/17/2023 8:08 AM EDT Temperature 36.2 C (97.1 F) 06/17/2023 8:08 AM ED T Respiratory Rate - - Oxygen Saturation 97% 06/17/2023 8:08 AM EDT Inhaled Oxygen Concentration - - Weight 103.1 kg (227 lb 4.8 oz) 06/17/2023 8:08 AM EDT Height 186.1 cm (6' 1.25") 06/17/2023 8:08 AM ED T Body Mass Index 29.78 06/17/2023 8:08 AM EDT documented in this encounter Progress Notes * Hannah Lemus CRNP - 06/17/2023 8:10 AM EDT Hematology/Oncology Outpatient Clinic note Crys Espinoza [address] [facility] [place] [address] Name: Madhu Rahman Date: 06/17/2023 REFERRED BY: Dr. Nestor Kulkarni CHIEF COMPLAINT: Madhu Rahman is a 53 year old male here today for new consultation for secondary erythrocytosis. HISTORY OF PRESENT ILLNESS: Patient with PMH of BPH and HTN. Patient is self injecting testosterone replacement 125 mg injection twice weekly on Wednesday and . Patient purchases this online. Does not follow with any health chronic care nurse for management of his testosterone replacement. When he does not use the testosterone he feels very fatigued and that he has poor stamina. Feels weak and "flabby." Has tried to come off his testosterone over the winter and these symptoms returned. Patient does report that he snores. Uses a mouth piece that does help with this. Patient does not smoke. Patient does drink alcohol on the weekend. Admits this can be to excess at times. Patient denies weight loss. Currently denies drenching night sweats. Patient denies headaches or blurry vision. Denies paresthesias. Patient denies history of VTE. Patient does report pruritus after getting in his hot tub. Denies erythromelalgia. Denies issues with high blood pressure on lisinopril. He does take a baby aspirin once a day 5 days a week. Does feel like he stays well hydrated. Patient's past medical history, social history, and family history were reviewed and updated. Past Medical History: Diagnosis Date BPH with obstruction/lower urinary tract symptoms 04/06/2023 HTN, goal below 130/80 03/25/2020 Long-term current use of testosterone replacement therapy 04/06/2023 Lumbar degenerative disc disease 04/06/2023 Obesity, Class I, BMI 30.0-34.9 (see actual BMI) 04/03/2020 Prediabetes 03/27/2020 No family history on file. Social History Socioeconomic History Marital status: Spouse name: Not on file Number of children: Not on file Years of education: Not on file Highest education level: Not on file Occupational History Not on file Tobacco Use Smoking status: Never Smokeless tobacco: Former Types: Chew Substance and Sexual Activity Alcohol use: Yes Drug use: Never Sexual activity: Not on file Other Topics Concern Not on file Social History Narrative Not on file Social Determinants of Health Financial Resource Strain: Not on file Food Insecurity: No Food Insecurity (07/28/2022) Hunger Vital Sign Worried About Running Out of Food in the Last Year: Never true Ran Out of Food in the Last Year: Never true Transportation Needs: Not on file Physical Activity: Not on file Stress: Not on file Social Connections: Not on file Intimate Partner Violence: Not on file Housing Stability: Not on file Review of patient's allergies indicates: No Known Allergies Current Outpatient Medications Medication Sig Dispense Refill [...] mouth in the morning. 100 Capsule 1 No current facility-administered medications for this visit. REVIEW OF SYSTEMS: SEE HPI - otherwise negative OBJECTIVE: Filed Vitals: 06/17/23 0808 BP: 150/97 Pulse: 75 Temp: 36.2 C (97.1 F) TempSrc: Tympanic SpO2: 97% Weight: 103.1 kg (227 lb 4.8 oz) Height: 1.861 m (6' 1.25") Wt Readings from Last 5 Encounters: 06/17/23 103.1 kg (227 lb 4.8 oz) 06/02/23 103.8 kg (228 lb 12.8 oz) 08/31/22 101.4 kg (223 lb 8 oz) 04/21/22 98.8 kg (217 lb 14.4 oz) 03/30/22 103.8 kg (228 lb 12.8 oz) PHYSICAL EXAM: Constitutional: no acute distress Neuro: alert, oriented to person, place, and time, gait normal HEENT: normal: normocephalic, atraumatic; neck with no masses or tenderness; no cervical/supraclavicular lymphadenopathy CV: normal rate and rhythm, no murmur Chest: normal respiratory effort, lungs clear to auscultation Abdomen: normal: soft, bowel sounds normal, no masses, tenderness or organomegaly Extremities: no edema Skin: warm and dry LABS: Results for orders placed or performed in visit on 06/02/23 HEPATIC FUNCTION PANEL Result Value Ref Range Albumin 4.0 3.8 - 5.0 g/dL AST 26 10 - 50 U/L Alkaline Phosphatase 65 35 - 130 U/L ALT 47 10 - 50 U/L Bilirubin, Total 0.2 <=1.2 mg/dL Bilirubin, Direct <0.2 0.0 - 0.3 mg/dL Protein 6.8 6.0 - 8.3 g/dL ANAPLASMA PHAGOCYTOPHILUM DNA, QL REAL-TIME PCR Result Value Ref Range A.Phagocytophilum, DNA, PCR Not Detected Not Detected MYCODE INITIAL ADULT-PINK Result Value Ref Range MyCode Specimen Freezing of extracted DNA, whole blood and/or serum. MYCODE SST1 Result Value Ref Range MyCode Specimen Freezing of extracted DNA, whole blood and/or serum. MYCODE SST2 Result Value Ref Range MyCode Specimen Freezing of extracted DNA, whole blood and/or serum. ANEMIA CBC Result Value Ref Range WBC 7.28 4.00 - 10.80 K/uL RBC 5.94 4.50 - 5.25 M/uL HGB 18.1 (H) 14.0 - 16.8 g/dL HCT 57.2 (H) 40.0 - 48.4 % MCV 96.3 82.0 - 99.5 fL MCH 30.5 27.0 - 34.0 pg MCHC 31.6 32.0 - 36.0 g/dL RDW 14.3 11.5 - 15.5 % PLT 248 140 - 400 K/uL MPV 12.7 6.6 - 11.1 fL nRBCs 0 <=0 /100 WBCs DIFFERENTIAL, AUTOMATED Result Value Ref Range WBC 7.28 4.00 - 10.80 K/uL Neutrophils % 64.4 40.0 - 75.0 % Lymphocytes % 11.7 (L) 18.0 - 42.0 % Monocytes % 19.2 (H) 1.0 - 11.0 % Eosinophils % 3.4 0.0 - 6.0 % Basophils % 0.5 0.0 - 2.0 % Immature Granulocytes % 0.8 0.0 - 2.0 % Absolute Neutrophils 4.68 1.80 - 7.70 K/uL Absolute Lymphocytes 0.85 (L) 1.00 - 4.80 K/ul Absolute Monocytes 1.40 (H) 0.00 - 1.10 K/uL Absolute Eosinophils 0.25 0.00 - 0.70 K/uL Absolute Basophils 0.04 0.00 - 0.20 K/uL Absolute Immature Granulocytes 0.06 0.00 - 0.20 K/uL LYME DISEASE ANTIBODY SCREEN Result Value Ref Range Lyme Disease Antibody Screen Negative Negative Component Latest Ref Rng 04/05/2023 Albumin 3.8 - 5.0 g/dL 4.8 Sex Hormone Binding Globulin 12 - 91 nmol/L 18 Testosterone, Total 193.0 - 740.0 ng/dL 1,297.0 (H) Free Testosterone, Calculation 35.0 - 130.0 pg/mL 383.9 (H) Bioavailable Testosterone Calculation 79.0 - 335.0 ng/dL 999.8 (H) IMPRESSION: Secondary erythrocytosis, current use of testosterone replacement therapy: 53 y/o male with PMH of BPH and HTN. Patient is self injecting testosterone replacement 125 mg injection twice weekly on Wednesday and . Patient purchases this online. Does not follow with any health chronic care nurse for management of his testosterone replacement. When he does not use the testosterone he feels very fatigued and that he has poor stamina. Feels weak and "flabby." Has tried to come off his testosterone over the winter and these symptoms returned. Lab orders 06/02/23 reviewed: H/H 18.1/57.2 Total Testosterone in March noted to be elevated at 1,297. Patient does report that he snores. Uses a mouth piece that does help with this. Patient does not smoke. Patient does drink alcohol on the weekend. Admits this can be to excess at times. Patient denies weight loss. Currently denies drenching night sweats. Patient denies headaches or blurry vision. Denies paresthesias. Patient denies history of VTE. Patient does report pruritus after getting in his hot tub. Denies erythromelalgia. Denies issues with high blood pressure on lisinopril. He does take a baby aspirin once a day 5 days a week. Does feel like he stays well hydrated. PLAN: Patient will have EPO level drawn today. Patient last injected testosterone on Wednesday. Asked patient to continue to hold testosterone injections at this time. Will have cbc/diff, testosterone, ferritin, iron screen and PSA drawn next Wednesday. Patient agreeable. Evidence-based guidelines on the management of erythrocytosis secondary to testosterone are lacking, and current guidelines based on expert consensus are variable. At a hematocrit percentage above 54% recommendations consist of stopping testosterone, reducing dosage/switching to transdermal formulation, and/or therapeutic phlebotomy. Goal is to decrease Hct to 50% or lower prior to resuming testosterone. Patient admits he is unwilling to stop testosterone or follow with provider for management. After repeat lab work reviewed will discuss with patient option of decreasing dosage. If patient unwilling to do this and Hct remains greater than 50% will recommend therapeutic phlebotomy at that time due to potential increased risk for thromboembolic events and ischemia related to hyperviscosity. Continue baby aspirin 81 mg five days a week. Continue to follow with PCP for management of cardiovascular risk factors. Would also consider for sleep medicine referral. RTC in two weeks by telephone to review lab results YUNG Marrufo documented in this encounter Nursing Notes * Lyn Bennett, MED ASSIST - 06/17/2023 8:12 AM EDT Patient identifed by name and birthdate Do you have any concerns about pain management for today's visit? No Living Will or Advance Directive for Health Care as noted on the problem list. [facility] is a way you can talk to your provider on line through e-mail. Would you like to sign up? I can activate it for you? ALREADY ACTIVE Filed Vitals: 06/17/23 0808 BP: 150/97 Pulse: 75 Temp: 36.2 C (97.1 F) TempSrc: Tympanic SpO2: 97% Weight: 103.1 kg (227 lb 4.8 oz) Height: 1.861 m (6' 1.25") Patient was instructed to not get up on the exam table/exam chair until directed and assisted by their provider; patient is to remain seated in the chair/ wheelchair/ exam table/ exam chair for fall prevention and safety reasons. Patient is aware to have assistance to step down off exam table/exam chair with personnel. Patient voiced full comprehension of instructions. documented in this encounter Plan of Treatment Upcoming Encounters Date Type Department Care Team (Late st Contact Info) Description 07/01/2023 5:00 PM EDT Telemedicine Hematology/Oncology [facility] [address] [place] [phone] Hannah Lemus CRNP [address] [facility] [place] [address] Health Maintenance Due [...] 2) 05/25/2022 03/30/2022 COVID-19 Vaccine (1 - season) 2022 Influenza Vaccine (FLU shot) (Season [...] Not on filedocumented as of this encounter Results * PSA (06/23/2023 3:37 PM EDT) PSA 0.77 <3.10 ng/mL 06/24/2023 3:22 AM EDT [facility] Blood Venous blood specimen / Unknown Venipuncture / Unknown 06/23/2023 3:37 PM EDT 06/23/2023 3:37 PM EDT Hannah BARRAGAN LAB BLOOD ORDER BRISA Performing Organization Address City/[facility] Co de Phone Number [facility] [address] [place] [address] * (ABNORMAL) IRON SCREEN, INCLUDING TIBC (06/23/2023 3:37 PM EDT) Iron 25(L) 45 - 176 ug/dL 06/24/2023 10:59 AM EDT [facility] Iron Binding Capacity 249(L) 250 - 425 ug/dL 06/24/2023 10:59 AM EDT [facility] Transferrin Saturation Percent 10(L) 15 - 55 % 06/24/2023 10:59 AM EDT [facility] Blood Venous blood specimen / Unknown Venipuncture / Unknown 06/23/2023 3:37 PM EDT 06/23/2023 3:37 PM EDT Hannah BARRAGAN LAB BLOOD ORDER BRISA Performing Organization Address City/[facility]/ZIP Co de Phone Number [facility] [address] [place] [address] * FERRITIN (06/23/2023 3:37 PM EDT) Ferritin 197 30 - 400 ng/mL 06/24/2023 4:40 AM EDT LABORATORY [facility] Blood Venous blood specimen / Unknown Venipuncture / Unknown 06/23/2023 3:37 PM EDT 06/23/2023 3:37 PM EDT Hannah BARRAGAN LAB BLOOD ORDER BRISA Performing Organization Address City/[facility]/ZIP Co de Phone Number LABORATORY [facility] [address] [place] [address] * (ABNORMAL) TESTOSTERONE: TOTAL, FREE AND BIOAVAILABLE (06/23/2023 3:37 PM EDT) Pathologist [facility] Albumin 4.2 3.8 - 5.0 g/dL 06/24/2023 10:59 AM EDT LABORATORY [facility] Sex Hormone Binding Globulin 18 12 - 91 nmol/L 06/24/2023 10:59 AM EDT LABORATORY C Testosterone, Total 621.4 193.0 - 740.0 ng/dL 06/24/2023 10:59 AM EDT LABORATORY [facility] Free Testosterone, Calculation 183.1(H) 35.0 - 130.0 pg/mL 06/24/2023 10:59 AM EDT LABORATORY [facility] Bioavailable Testosterone Calculation 419.5(H) 79.0 - 335.0 ng/dL 06/24/2023 10:59 AM EDT LABORATORY [facility] Blood Venous blood specimen / Unknown Venipuncture / Unknown 06/23/2023 3:37 PM EDT 06/23/2023 3:37 PM EDT Hannah BARRAGAN LAB BLOOD ORDER BRISA Performing Organization Address City/[facility]/ZIP Co de Phone Number LABORATORY [place] [address] [place] [address] * ERYTHROPOIETIN (EPO) (06/17/2023 8:59 AM EDT) Pathologist [facility] Erythropoietin (EPO) 9.1 2.6 - 18.5 mIU/mL 06/20/2023 1:05 PM EDT [facility] Comment: Test Performed at: [facility] [address] [place] [address] Devin Granados M.D., Ph.D.,Director of Laboratories Blood Venous blood specimen / Unknown Venipuncture / Unknown 06/17/2023 8:59 AM EDT 06/17/2023 8:59 AM EDT Hannahchristianne Arshadlaurence BARRAGAN LAB BLOOD ORDER BRISA [facility] [address] [place] [address] documented in this encounter Visit Diagnoses Diagnosis Erythrocytosis- Primary Polycythemia, secondary Long-term current use of testosterone replacement therapy documented in this encounter Care Teams Cvor Nurse Relationship Specialty Start Date End Date Nestor Kulkarni MD [address] [place] [address] PCP - General Family Medicine 03/26/20 documented as of this encounter
--- OUTSIDE RECORDS SUMMARY | 2023-06-26 08:07 | External Medical Summary | Summary of Care ---
Author Name Unknown Organization [facility] Address [address] [facility] [place] [address] Phone [phone] Care Team Providers Care Bar Tacker Sewing Machine Name Role Phone Nestor Kulkarni MD Primary Care Provider [phone] Reason for Visit * Reason Comments Outpatient Testing Encounter Details Date Type Department Care Team (Late st Contact Info) Description 06/17/2023 9:40 AM EDT Laboratory Laboratory [facility] [address] [place] [phone] [place], Lab [address] [place] [address] Erythrocytosis Allergies No known active allergiesdocumented as of this encounter (statuses as of 06/17/2023) Medications Medication Sig Dispensed Refills Start Date [...] as of this encounter (statuses as of 06/17/2023) Active Problems Problem Noted Date Diagnosed Date Long-term current use of testosterone replacemen t therapy 04/06/2023 Lumbar degenerative disc disease 04/06/2023 BPH with obstruction/lower urinary tract symptom s 04/06/2023 Obesity, Class I, BMI 30.0-34.9 (see actual BMI) 04/03/2020 HTN, goal below 130/80 03/25/2020 documented as of this encounter (statuses as of 06/17/2023) Resolved Problems Problem Noted Date Diagnosed Date Resolved Date Chronic bilateral low back p ain without sciatica 12/22/2022 04/06/2023 Prediabetes 03/27/2020 05/06/2023 documented as of this encounter (statuses as of 06/17/2023) Immunizations Name Administration Dates Next Due Zoster [...] Description 06/23/2023 4:00 PM EDT Laboratory Laboratory, [facility] [address] [place] [phone] [place] [address] [facility] [place] [address] 07/01/2023 5:00 PM EDT Telemedicine Hematology/Oncology [facility] [address] [place] [phone] Hannah Lemus CRNP [address] [place] [address] [place] [address] Pending Results Name Type Priority Associated Diagnoses Date /Time ERYTHROPOIETIN (EPO) Lab Routine Erythrocytosis 06/17/2023 8:59 AM EDT Health Maintenance Due Date Last Done [...] 2022-24 season) 2022 Influenza Vaccine (FLU shot) (#1) [...] as of this encounter Visit Diagnoses Diagnosis Erythrocytosis Polycythemia, secondary documented in this encounter Care Teams Bar Tacker Sewing Machine Relationship Specialty Start Date End Date Nestor Kulkarni MD [address] [place] [address] PCP - General Family Medicine 03/26/20 documented as of this encounter
--- OUTSIDE RECORDS SUMMARY | 2023-06-26 08:07 | External Medical Summary ---
Author Name Unknown Address Unknown Organization K01:LABORATORY C - [address] [facility] [address] Laboratory Report Ordering Provider Test Date Status HELIO AGUDELO 06/02/2023 15:48:19 Final Observation Date Value Abnormality Reference (Units ) Status MYCODE SPECIMEN-LAV 06/02/2023 15:48:19 Freezing of extracted DNA, whole blood and/or serum. Final Performing Location [facility] - [address] [place] [address]
--- OUTSIDE RECORDS SUMMARY | 2023-06-26 08:07 | External Medical Summary ---
Author Name Unknown Address Unknown Organization K01:LABORATORY [facility] - [address] [facility] [address] Laboratory Report Ordering Provider Test Date Status HELIO AGUDELO 06/23/2023 15:37:45 Final Observation Date Value Abnormality Reference (Units ) Status MYCODE SPECIMEN-SST 06/23/2023 15:37:45 Freezing of extracted DNA, whole blood and/or serum. Final Performing Location LABORATORY [facility] - [address] [facility] [address]
--- OUTSIDE RECORDS SUMMARY | 2023-06-26 08:07 | External Medical Summary | Summary of Care ---
Author Name Unknown Organization [facility] Address [address] [place] [address] Phone [phone] Care Team Providers Care Market Master Name Role Phone Nestor Kulkarni MD Primary Care Provider [phone] Encounter Details Date Type Department Care Team (Late st Contact Info) Description 06/07/2023 Orders Only Outcomes Research Department [address] [place] [address] Ammy Duke [facility] Other*[id number] Allergies No known active allergiesdocumented as of this encounter (statuses as of 06/07/2023) Medications Medication Sig Dispensed Refills Start Date [...] as of this encounter (statuses as of 06/07/2023) Active Problems Problem Noted Date Diagnosed Date Long-term current use of testosterone replacemen t therapy 04/06/2023 Lumbar degenerative disc disease 04/06/2023 BPH with obstruction/lower urinary tract symptom s 04/06/2023 Obesity, Class I, BMI 30.0-34.9 (see actual BMI) 04/03/2020 HTN, goal below 130/80 03/25/2020 documented as of this encounter (statuses as of 06/07/2023) Resolved Problems Problem Noted Date Diagnosed Date Resolved Date Chronic bilateral low back p ain without sciatica 12/22/2022 04/06/2023 Prediabetes 03/27/2020 05/06/2023 documented as of this encounter (statuses as of 06/07/2023) Immunizations Name Administration Dates Next Due Zoster [...] 06/17/2023 8:00 AM EDT Office Visit Hematology/Oncology [place] [facility] [address] [facility] [place] [phone] Hannah Lemus CRNP [address] [place] [address] Scheduled Orders Name Type Priority Associated Diagnoses Orde r Schedule MYCODE SUBSEQUENT ADULT Lab Routine [facility] Other*[id number] Every 6 Months for 2 Occurrences starting 06/07/2023 until 06/26/2024 Health Maintenance Due Date Last Done Comments [...] this encounter Visit Diagnoses Diagnosis [facility] Other*[id number] documented in this encounter Care Teams Market Master Relationship Specialty Start Date End Date Nestor Kulkarni MD [address] [place] [address] PCP - General Family Medicine 03/26/20 documented as of this encounter
--- OUTSIDE RECORDS SUMMARY | 2023-06-26 08:08 | External Medical Summary | Summary of Care ---
Author Name Unknown Organization [facility] Address [address] [facility] [place] [address] Phone [phone] Care Team Providers Care Plastic Extruding Machine Operator Name Role Phone Jodee Nunez MD Primary Care Provider [phone] [phone] Reason for Visit * Reason Onset Date Comments Medication Refill 02/16/2023 Encounter Details Date Type Department Care Team (Late st Contact Info) Description 02/16/2023 Refill Family Practice [facility] [address] [place] [address] Jodee Nunez MD [address] [place] [address] Allergies No known active allergiesdocumented as of this encounter (statuses as of 02/16/2023) Medications Medication Sig Dispensed Refills Start Date [...] 1 01/04/2023 Active Benzonatate 200 MG Oral CapsuleIndicatio ns:Acute cough Take 1 Capsule by mouth 3 times a day as needed for Cough. 50 Capsule 1 02/02/2023 Active Diclofenac Sodium 75 MG Oral Tablet Delayed Release (Voltaren) Take 1 Tablet by mouth in the morning and 1 Tablet before bedtime. With food.. 60 Tablet 1 02/16/2023 Active Diclofenac Sodium 75 MG Oral Tablet Delayed Release (Voltaren) Take 1 Tablet by mouth in the morning and 1 Tablet before bedtime. With food.. 60 Tablet 1 12/22/2022 02/16/2023 Discontinued (Refill) documented as of this encounter (statuses as of 02/16/2023) Active Problems Problem Noted Date Diagnosed Date Chronic bilateral low back pain without sciatica 12/22/2022 Obesity, Class I, BMI 30.0-34.9 (see actual BMI) 04/03/2020 Prediabetes 03/27/2020 HTN, goal below 130/80 03/25/2020 documented as of this encounter (statuses as of 02/16/2023) Immunizations Name Administration Dates Next Due Zoster [...] encounter Miscellaneous Notes * Telephone Encounter - Jodee Nunez MD - 02/16/2023 4:04 PM ESTSigned Prescriptions: Disp Refills Diclofenac Sodium 75 MG Oral Tablet Delaye*60 Tab*1 Sig: Take 1 Tablet by mouth in the morning and 1 Tablet before bedtime. With food.. Authorizing Provider: JODEE NUNEZ * Telephone Encounter - Annie Arredondo [facility] - 02/16/2023 3:35 PM EST Pending Prescriptions: Disp Refills Diclofenac Sodium 75 MG Oral Tablet Delaye*60 Tab*1 Sig: Take 1 Tablet by mouth in the morning and 1 Tablet before bedtime. With food.. * Telephone Encounter - Annie Arredondo RPh - 02/16/2023 3:34 PM EST Med initially ordered for an acute issue. Please approve if appropriate to continue. Thank you, Annie Arredondo, PharmD, [facility] Clinical Pharmacist [facility] Pharmacy Services (CCPS) (formerly Telepharmacy) 02/16/23 3:34 PM [phone] documented in this encounter Plan of Treatment Health Maintenance Due Date Last Done Comments Hepatitis B (1 of 3 - 3-dose series) 1970 COVID-19 Vaccine (#1) 1970 HIV Screening 1985 Albumin/Creatinine Ratio 02/27/1988 Hepatitis C Screening 02/27/1988 DTaP,Tdap,and Td Vaccines (1 - Tdap) 1989 Cologuard 2015 Colonoscopy 2015 Colorectal Cancer Screening 2015 Fecal Occult Blood Test 2015 Sigmoidoscopy 2015 Depression Screening 03/26/2021 03/26/2020 GFR 03/26/2021 03/26/2020 HbA1c 03/26/2021 03/26/2020 Zoster Vaccines (2 of 2) 05/25/2022 03/30/2022 Influenza Vaccine (FLU shot) (#1) 2022 Lipid Panel 03/26/2025 03/26/2020 GARDASIL-HPV IMMUNIZATION SERIES Aged Out No longer eligible based on patient's age to complete this topic MENINGOCOCCAL (MENACTRA/MENVEO) Aged Out No longer eligible based on patient's age to complete this topic Pneumococcal Vaccine: Pediat rics (0 to 5 Years) and At-Risk Patients (6 to 64 Years) Aged Out No longer eligi ble based on patient's age to complete this topic documented as of this encounter Medical Devices Not on filedocumented as of this encounter Care Teams Plastic Extruding Machine Operator Relationship Specialty Start Date End Date Jodee Nunez MD [address] [place] [address] PCP - General Family Medicine 03/26/20 documented as of this encounter
--- OUTSIDE RECORDS SUMMARY | 2023-06-26 08:08 | External Medical Summary ---
Author Name Unknown Address Unknown Organization [id number]:LABORATORY [facility] [place] [address] [place] [address] Laboratory Report Ordering Provider Test Date Status SALVATORE ELLSWORTH 04/29/2023 15:42:20 Final Observation Date Value Abnormality Reference (Units ) Status BUN 04/29/2023 15:42:20 13 6-20 (mg/dL) Final Creatinine 04/29/2023 15:42:20 1.2 0.6-1.2 (mg/dL) Final Glomerular filtration rate/1.73 sq M.predicted [Volume Rate/Area] in Serum, Plasma or Blood by Creatinine-based formula (CKD-EPI) 04/29/2023 15:42:20 72 >=60 (mL/min) Final eGFR is calculated based on the CKD-EPI 2020 equation SODIUM 04/29/2023 15:42:20 138 135-146 (m mol/L) Final Potassium 04/29/2023 15:42:20 4.4 3.5-5.1 (m mol/L) Final Cl 04/29/2023 15:42:20 99 98-107 (mm ol/L) Final CO2 04/29/2023 15:42:20 25 22-32 (mmo l/L) Final Anion gap 04/29/2023 15:42:20 14 7-15 (mmol /L) Final Glucose 04/29/2023 15:42:20 83 70-120 (mg /dL) Final Calcium 04/29/2023 15:42:20 9.8 8.4-10.2 ( mg/dL) Final Performing Location [facility]ORY [facility] [place] [address] [place] [address]
--- OUTSIDE RECORDS SUMMARY | 2023-06-26 08:08 | External Medical Summary | Summary of Care ---
Author Name Unknown Organization [facility] Address [address] [place] [address] Phone [phone] Care Team Providers Care Insert Cutter Name Role Phone Nestor Kulkarni MD Primary Care Provider [phone] Reason for Visit * Reason Onset Date Comments Appointment Canceled 01/04/2023 Encounter Details Date Type Department Care Team Description 01/04/2023 Telephone [facility] [address] [place] [address] Specified, Raisa No Resource [address] [place] [address] Appointment Canceled Allergies No known active allergiesdocumented as of this encounter (statuses as of 01/04/2023) Medications Medication Sig Dispensed Refills Start Date End Date Status Testosterone Enanthate 200 MG/ML Injection Solution Inject 250 mg as directed once a week. 0 Active Tamsulosin HCl 0.4 MG Oral Capsule (Flomax) Take 1 Capsule by mouth in the morning. 100 Capsule 1 08/27/2022 Active metFORMIN HCl 1000 MG Oral Tablet (Glucophage) Take 1 Tablet by mouth 2 times a day with morning and evening meals. 0 Active Semaglutide(0.25 or 0.5MG/DOS) 2 MG/3ML Solution Pen-injector (Ozempic) Inject 0.25 mg under the skin once a week. 3 mL 5 08/31/2022 Active Phentermine HCl 37.5 MG Oral CapsuleIndications: Prediabetes Take 1 Capsule by mouth in the morning. 30 Capsule 0 11/10/2022 Active Diclofenac Sodium 75 MG Oral Tablet Delayed Release (Voltaren) Take 1 Tablet by mouth in the morning and 1 Tablet before bedtime. With food.. 60 Tablet 1 12/22/2022 Active documented as of this encounter (statuses as of 01/04/2023) Active Problems Problem Noted Date Chronic bilateral low back pain without sciatica 12/22/2022 Obesity, Class I, BMI 30.0-34.9 (see act ual BMI) 04/03/2020 Prediabetes 03/27/2020 HTN, goal below 130/80 03/25/2020 documented as of this encounter (statuses as of 01/04/2023) Immunizations Name Administration Dates Next Due Zoster Vaccine Recombinant (Shingrix) 03/30/2022 documented as of this encounter Social History Tobacco Use Types Packs/Day Years Used Date Smoking Tobacco: Never Smokeless Tobacco: Former Chew Alcohol Use Standard Drinks/Week Comments Yes 0 (1 standard drink = 0.6 oz pur e alcohol) Food Insecurity Answer Date Recorded Within the past 12 months, y ou worried that your food would run out before you got money to buy more. Never true 07/28/2022 Within the past 12 months, t he food you bought just didn't last and you didn't have money to get more. Never true 07/28/2022 Sex Assigned at Date Recorded Male 03/29/2022 9:[address] Job Start Date Occupation Industry Not on file Not on file Not on file documented as of this encounter Miscellaneous Notes * Telephone Encounter - Akilah Nunez RN - 01/04/2023 1:44 PM EDT Placed call out to patient [phone], spoke with patient and verified by name and . Advised we would need to cancel video appt today with Dr. Grant. Because he is coming in for a spineconcern and we have never seen him before, he would require a physical exam. He has declined rescheduling an appt at this time, he did not realize we are located in [place] and his work schedule would not allow him to get off in time for an office visit. He was provided our clinic call back number if any change. documented in this encounter Plan of Treatment Upcoming Encounters Date Type Specialty Care Team Description 01/04/2023 Telemedicine Neurological Surgery [facility] [address] [facility] [address] Health Maintenance Due Date Last Done Comments [...] filedocumented as of this encounter Care Teams Insert Cutter Relationship Specialty Start Date End Date Nestor Kulkarni MD [address] [place] [address] PCP - General Family Medicine 03/26/20 documented as of this encounter
--- OUTSIDE RECORDS SUMMARY | 2023-06-26 08:08 | External Medical Summary | Summary of Care ---
Author Name Unknown Organization [facility] Address [address] [facility] [place] [place] [place] [address] Phone [phone] Care Team Providers Care Stainless Steel Finisher Name Role Phone Nestor Kulkarni MD Primary Care Provider [phone] [phone] Reason for Visit * Reason Onset Date Comments Films 01/28/2023 Encounter Details Date Type Department Care Team (Late st Contact Info) Description 01/28/2023 Telephone Radiology Film File [address] [place] [facility] [place] [address] Kanika Landon CRNP [address] [place] [address] Films Allergies No known active allergiesdocumented as of this encounter (statuses as of 01/28/2023) Medications Medication Sig Dispensed Refills Start Date [...] a week. 3 mL 5 08/31/2022 Active Diclofenac Sodium 75 MG Oral Tablet Delayed Release (Voltaren) Take 1 Tablet by mouth in the morning and 1 Tablet before bedtime. With food.. 60 Tablet 1 12/22/2022 Active Tamsulosin HCl 0.4 MG Oral Capsule (Flomax) Take 1 Capsule by mouth in the morning. 100 Capsule 1 01/04/2023 Active Phentermine HCl 37.5 MG Oral CapsuleIndications: Prediabetes Take 1 Capsule by mouth in the morning. 30 Capsule 0 01/05/2023 Active documented as of this encounter (statuses as of 01/28/2023) Active Problems Problem Noted Date Diagnosed Date Chronic bilateral low back pain without sciatica 12/22/2022 Obesity, Class I, BMI 30.0-34.9 (see actual BMI) 04/03/2020 Prediabetes 03/27/2020 HTN, goal below 130/80 03/25/2020 documented as of this encounter (statuses as of 01/28/2023) Immunizations Name Administration Dates Next Due Zoster [...] encounter Miscellaneous Notes * Telephone Encounter - Alisson Gonzalez OSA - 01/28/2023 4:49 PM EST [facility] requesting 01-01-23 images be pushed to their system. [place] Authorization to Release on file. Images pushed to [facility] external connection through PACs Associated report(s) not needed. documented in this encounter Plan of Treatment [...] filedocumented as of this encounter Care Teams Stainless Steel Finisher Relationship Specialty Start Date End Date Nestor Kulkarni MD [address] [place] [address] PCP - General Family Medicine 03/26/20 documented as of this encounter
--- OUTSIDE RECORDS SUMMARY | 2023-06-26 08:08 | External Medical Summary | Summary of Care ---
Author Name Unknown Organization [facility] Address [address] [facility] [place] [address] Phone [phone] Care Team Providers Care Lamp Shade Sewer Name Role Phone Nestor Kulkarni MD Primary Care Provider [phone] Reason for Visit * Reason Onset Date Comments Medication Refill 03/17/2023 Encounter Details Date Type Department Care Team (Late st Contact Info) Description 03/17/2023 Refill Family Practice [facility] [address] [place] [address] Nestor Kulkarni MD [address] [place] [address] Acute cough; Prediabetes Allergies No known active allergiesdocumented as of this encounter (statuses as of 03/18/2023) Medications Medication Sig Dispensed Refills Start Date [...] the morning. 100 Capsule 1 01/04/2023 Active Diclofenac Sodium 75 MG Oral Tablet Delayed Release (Voltaren) Take 1 Tablet by mouth in the morning and 1 Tablet before bedtime. With food.. 60 Tablet 1 02/16/2023 Active Benzonatate 200 MG Oral CapsuleIndicatio ns:Acute cough Take 1 Capsule by mouth 3 times a day as needed for Cough. 50 Capsule 1 03/18/2023 Active Phentermine HCl 37.5 MG Oral CapsuleIndicatio ns:Prediabetes Take 1 Capsule by mouth in the morning. 30 Capsule 0 03/18/2023 Active Lisinopril 10 MG Oral Tablet (Prinivil) Take 1 Tablet by mouth in the morning. 30 Tablet 5 03/18/2023 Active Benzonatate 200 MG Oral CapsuleIndicatio ns:Acute cough Take 1 Capsule by mouth 3 times a day as needed for Cough. 50 Capsule 1 02/02/2023 03/17/2023 Discontinued (Refill) Phentermine HCl 37.5 MG Oral CapsuleIndicatio ns:Prediabetes Take 1 Capsule by mouth in the morning. 30 Capsule 0 02/16/2023 03/17/2023 Discontinued (Refill) documented as of this encounter (statuses as of 03/18/2023) Active Problems Problem Noted Date Diagnosed Date Chronic bilateral low back pain without sciatica 12/22/2022 Obesity, Class I, BMI 30.0-34.9 (see actual BMI) 04/03/2020 Prediabetes 03/27/2020 HTN, goal below 130/80 03/25/2020 documented as of this encounter (statuses as of 03/18/2023) Immunizations Name Administration Dates Next Due Zoster [...] encounter Miscellaneous Notes * Telephone Encounter - Leny Bell DO - 03/18/2023 6:11 PM EST Signed Prescriptions: Disp Refills Benzonatate 200 MG Oral Capsule 50 Cap*1 Sig: Take 1 Capsule by mouth 3 times a day as needed for Cough. Authorizing Provider: LENY BELL Phentermine HCl 37.5 MG Oral Capsule 30 Cap*0 Sig: Take 1 Capsule by mouth in the morning. Authorizing Provider: LENY BELL * Telephone Encounter - Reina Lynch [facility] - 03/18/2023 2:41 PM EST Pending Prescriptions: Disp Refills Benzonatate 200 MG Oral Capsule 50 Cap*1 Sig: Take 1 Capsule by mouth 3 times a day as needed for Cough. Phentermine HCl 37.5 MG Oral Capsule 30 Cap*0 Sig: Take 1 Capsule by mouth in the morning. * Telephone Encounter - Reina Lynch [facility] - 03/18/2023 2:41 PM EST I have reviewed the patients controlled substance dispensing history in the Prescription Drug Monitoring Program in compliance with the [facility] regulations before prescribing a controlled substance. PDMP checked on 03/18/2023. Pending Prescriptions: Disp Refills Benzonatate 200 MG Oral Capsule 50 Cap*1 Sig: Take 1 Capsule by mouth 3 times a day as needed for Cough. Phentermine HCl 37.5 MG Oral Capsule 30 Cap*0 Sig: Take 1 Capsule by mouth in the morning. Last Visit: 03/30/2022 (in office), 12/22/2022 (telemedicine) Next Visit: Visit date not found Date medication was last filled: 02/16/23 Date medication is due for refill: 03/16/23 [facility] [facility] Is this request for a controlled substance? Yes and Urine Drug Screen Not completed Toxicology results: No results found for this or any previous visit. Please approve if appropriate. Thanks, Reina Lynch [facility] Clinical Pharmacist Centralized Clinical Pharmacy Services (CCPS) (Formerly Telepharmacy) [phone] documented in this encounter Plan of Treatment [...] as of this encounter Visit Diagnoses Diagnosis Acute cough Prediabetes Other abnormal glucose documented in this encounter Care Teams Lamp Shade Sewer Relationship Specialty Start Date End Date Nestor Kulkarni MD [address] [place] [address] PCP - General Family Medicine 03/26/20 documented as of this encounter
--- OUTSIDE RECORDS SUMMARY | 2023-06-26 08:08 | External Medical Summary ---
Author Name Unknown Address Unknown Organization [id number]:[facility] [address] [place] [address] Laboratory Report Ordering Provider Test Date Status MAYRA ELLSWORTH 04/05/2023 09:28:14 Final Observation Date Value Abnormality Reference (Units ) Status Albumin 04/05/2023 09:28:14 4.8 3.8-5.0 (g/dL) Final Sex Hormone Binding Globulin 04/05/2023 09:28:14 18 12-91 (nmol/L) Final Testosterone [Mass/volume] in Serum or Plasma 04/05/2023 09:28:14 1297.0 Above high normal 193.0-740.0 (ng/dL) Final Free Testosterone, calculated 04/05/2023 09:28:14 383.9 Above high normal 35.0-130.0 (pg/mL) Final Bioavailable Testosterone, calculated 04/05/2023 09:28:14 999.8 Above high normal 79.0-335.0 (ng/dL) Final Performing Location [facility] [place] [address]
--- OUTSIDE RECORDS SUMMARY | 2023-06-26 08:08 | External Medical Summary | Summary of Care ---
Author Name Unknown Organization [facility] Address [address] [facility] [place] [address] Phone [phone] Care Team Providers Care Boom Pump Operator Name Role Phone Nestor Kulkarni MD Primary Care Provider [phone] [phone] Encounter Details Date Type Department Care Team (Late st Contact Info) Description 04/28/2023 Orders Only PATIENT PORTAL DO NOT DELETE THIS DEPT USED BY [place] [id number] Allergies No known active allergiesdocumented as of this encounter (statuses as of 04/28/2023) Medications Medication Sig Dispensed Refills Start Date [...] as of this encounter (statuses as of 04/28/2023) Active Problems Problem Noted Date Diagnosed Date Long-term current use of testosterone replacemen t therapy 04/06/2023 Lumbar degenerative disc disease 04/06/2023 BPH with obstruction/lower urinary tract symptom s 04/06/2023 Obesity, Class I, BMI 30.0-34.9 (see actual BMI) 04/03/2020 Prediabetes 03/27/2020 HTN, goal below 130/80 03/25/2020 documented as of this encounter (statuses as of 04/28/2023) Resolved Problems Problem Noted Date Diagnosed Date Resolved Date Chronic bilateral low back p ain without sciatica 12/22/2022 04/06/2023 documented as of this encounter (statuses as of 04/28/2023) Immunizations Name Administration Dates Next Due Zoster [...] as of this encounter Plan of Treatment Health Maintenance [...] Vaccine (FLU shot) (#1) 2022 Lipid Panel 04/05/2028 04/05/2023, 03/26/2020 GARDASIL-HPV IMMUNIZATION SERIES Aged Out [...] filedocumented as of this encounter Care Teams Boom Pump Operator Relationship Specialty Start Date End Date Nestor Kulkarni MD [address] [place] [address] PCP - General Family Medicine 03/26/20 documented as of this encounter
--- OUTSIDE RECORDS SUMMARY | 2023-06-26 08:08 | External Medical Summary ---
Author Name Unknown Address Unknown Organization [id number]:LABORATORY [facility] [place] - [address] [place] [address] Laboratory Report Ordering Provider Test Date Status MAYRA ELLSWORTH 04/05/2023 09:28:14 Final Observation Date Value Abnormality Reference (Units ) Status Triglyceride 04/05/2023 09:28:14 252 Above high normal <=174 (mg/dL) Final Triglyceride Reference Range s (mg/dL):
<150 Acceptable
150-174 Borderline high
175-499 High
>=500 Very high Cholesterol 04/05/2023 09:28:14 160 <200 (mg /dL) Final Total Cholesterol Reference Ranges (mg/dL):
<200 Desirable
200-239 Borderline high
>=240 High HDL 04/05/2023 09:28:14 28 Below low normal >39 (mg/dL) Final HDL Cholesterol Reference Ra nges (mg/dL):
>=60 High (Desirable)
<50 Low (Undesirable) For Females
<40 Low (Undesirable) For Males NON-HDL CHOLESTEROL 04/05/2023 09:28:14 132 <=159 (mg/dL) Final Non-HDL Cholesterol Referenc e Range (mg/dL):
<100 Target level for high risk ASCVD patient
<130 Optimal for general population
130-159 Near optimal for general population
160-189 Borderline High
190-219 High
>=220 Very High Performing Location LABORATORY [facility] - [address] [place] [address]
--- OUTSIDE RECORDS SUMMARY | 2023-06-26 08:08 | External Medical Summary ---
Author Name Unknown Address Unknown Organization [id number]:LABORATORY [facility] [place] - [address] [place] [address] Laboratory Report Ordering Provider Test Date Status SALVATORE ELLSWORTH 04/29/2023 15:42:20 Final Observation Date Value Abnormality Reference (Units ) Status HbA1C 04/29/2023 15:42:20 5.4 4.0-5.6 (% ) Final The use of HbA1c to monitor glycemic status is based on normal hemoglobin and HbA composition. This test should not be used in patients with abnormal hemoglobin that affects the half life of the red blood cell or the in vivo glycation rates. Glucose, estimated average 04/29/2023 15:42:20 108 <126 (mg/dL) Final Performing Location LABORATORY [facility] - [address] [place] [address]
--- OUTSIDE RECORDS SUMMARY | 2023-06-26 08:08 | External Medical Summary ---
Author Name Unknown Address Unknown Organization K01:[facility]ORY [facility] - [address] [place] [address] Laboratory Report Ordering Provider Test Date Status MAYRA ELLSWORTH 04/05/2023 09:28:14 Final Observation Date Value Abnormality Reference (Units ) Status LDL, (direct) 04/05/2023 09:28:14 93 <=129 (mg/dL) Final LDL Cholesterol Reference Ra nges (mg/dL):
<70 Target level for high risk ASCVD patient
<100 Optimal for general population
100-129 Near optimal for general population
130-159 Borderline high
160-189 High
>=190 Very high Performing Location LABORATORY [facility] - [address] [place] [address]
--- OUTSIDE RECORDS SUMMARY | 2023-06-26 08:08 | External Medical Summary | Summary of Care ---
Author Name Unknown Organization [facility] Address [address] [facility] [place] [address] Phone [phone] Care Team Providers Care Department Secretary Name Role Phone Jodee Nunez MD Primary Care Provider [phone] [phone] Reason for Visit * Reason Onset Date Comments Medication Refill 04/26/2023 Encounter Details Date Type Department Care Team (Late st Contact Info) Description 04/26/2023 Refill Family Practice [facility] [address] [place] [address] [facility], [address] [place] [address] Acute cough; Prediabetes Allergies No known active allergiesdocumented as of this encounter (statuses as of 04/27/2023) Medications Medication Sig Dispensed Refills Start Date [...] 04/27/2023 Active Phentermine HCl 37.5 MG Oral CapsuleIndicatio ns:Prediabetes Take 1 Capsule by mouth in the morning. 30 Capsule 0 04/27/2023 Active Phentermine HCl 37.5 MG Oral CapsuleIndicatio ns:Prediabetes Take 1 Capsule by mouth in the morning. 30 Capsule 0 03/18/2023 04/26/2023 Discontinued (Refill) documented as of this encounter (statuses as of 04/27/2023) Active Problems Problem Noted Date Diagnosed Date Long-term current use of testosterone replacemen t therapy 04/06/2023 Lumbar degenerative disc disease 04/06/2023 BPH with obstruction/lower urinary tract symptom s 04/06/2023 Obesity, Class I, BMI 30.0-34.9 (see actual BMI) 04/03/2020 Prediabetes 03/27/2020 HTN, goal below 130/80 03/25/2020 documented as of this encounter (statuses as of 04/27/2023) Resolved Problems Problem Noted Date Diagnosed Date Resolved Date Chronic bilateral low back p ain without sciatica 12/22/2022 04/06/2023 documented as of this encounter (statuses as of 04/27/2023) Immunizations Name Administration Dates Next Due Zoster [...] Telephone Encounter - Jodee Nunez MD - 04/27/2023 1:38 PM ESTSigned Prescriptions: Disp Refills Phentermine HCl 37.5 MG Oral Capsule 30 Cap*0 Sig: Take 1 Capsule by mouth in the morning. Authorizing Provider: JODEE NUNEZ Refused Prescriptions: Disp Refills Benzonatate 200 MG Oral Capsule 50 Cap*1 Sig: Take 1 Capsule by mouth 3 times a day as needed for Cough. Refused By: JUD VILLAFANA Reason for Refusal: Too soon * Telephone Encounter - Jud Villafana [facility] - 04/27/2023 9:50 AM EST Pending Prescriptions: Disp Refills Phentermine HCl 37.5 MG Oral Capsule 30 Cap*0 Sig: Take 1 Capsule by mouth in the morning. Refused Prescriptions: Disp Refills Benzonatate 200 MG Oral Capsule 50 Cap*1 Sig: Take 1 Capsule by mouth 3 times a day as needed for Cough. Refused By: JUD VILLAFANA Reason for Refusal: Too s oon * Telephone Encounter - Jud Villafana RPh - 04/27/2023 9:50 AM EST I have reviewed the patients controlled substance dispensing history in the Prescription Drug Monitoring Program in compliance with the [facility] regulations before prescribing a controlled substance. PDMP checked on 04/27/2023. Pending Prescriptions: Disp Refills Phentermine HCl 37.5 MG Oral Capsule 30 Cap*0 Sig: Take 1 Capsule by mouth in the morning. Last Visit: 03/30/2022 (in office), 12/22/2022 (telemedicine) Next Visit: Visit date not found Date medication was last filled: 03/19 Date medication is due for refill: 04/18 Pharmacy: [facility] Is this request for a controlled substance? Yes and Urine Drug Screen Not completed Toxicology results: No results found for this or any previous visit. Please approve if appropriate. Thank you, Jud Villafana, PharmD. Clinical Pharmacist Centralized Clinical Pharmacy Services (CCPS) (formerly Telepharmacy) 04/27/2023, 9:50 AM documented in this encounter Plan of Treatment [...] glucose documented in this encounter Care Teams Department Secretary Relationship Specialty Start Date End Date Jodee Nunez MD [address] [place] [address] PCP - General Family Medicine 03/26/20 documented as of this encounter
--- OUTSIDE RECORDS SUMMARY | 2023-06-26 08:08 | External Medical Summary | Summary of Care ---
Author Name Unknown Organization [facility] Address [address] [facility] [place] [address] Phone [phone] Care Team Providers Care Tobacco Feeder Catcher Name Role Phone Nestor Kulkarni MD Primary Care Provider [phone] [phone] Reason for Visit * Reason Comments Outpatient Testing Encounter Details Date Type Department Care Team (Late st Contact Info) Description 04/05/2023 9:30 AM EST Laboratory Laboratory, [facility] [place] [address] [facility] [address] [facility] [place] [address] Low libido; Lipid screening Allergies No known active allergiesdocumented as of this encounter (statuses as of 04/05/2023) Medications Medication Sig Dispensed Refills Start Date [...] 1 02/16/2023 Active Benzonatate 200 MG Oral CapsuleIndications: Acute cough Take 1 Capsule by mouth 3 times a day as needed for Cough. 50 Capsule 1 03/18/2023 Active Phentermine HCl 37.5 MG Oral CapsuleIndications: Prediabetes Take 1 Capsule by mouth in the morning. 30 Capsule 0 03/18/2023 Active Lisinopril 10 MG Oral Tablet (Prinivil) Take 1 Tablet by mouth in the morning. 30 Tablet 5 03/18/2023 Active documented as of this encounter (statuses as of 04/05/2023) Active Problems Problem Noted Date Diagnosed Date Chronic bilateral low back pain without sciatica 12/22/2022 Obesity, Class I, BMI 30.0-34.9 (see actual BMI) 04/03/2020 Prediabetes 03/27/2020 HTN, goal below 130/80 03/25/2020 documented as of this encounter (statuses as of 04/05/2023) Immunizations Name Administration Dates Next Due Zoster [...] Name Type Priority Associated Diagnoses Date /Time TESTOSTERONE: TOTAL, FREE AND BIOAVAILABLE Lab Routine Low libido 04/05/2023 9:28 AM EST LIPID PANEL WITH DIRECT LDL IF TG IS HIGH Lab Routine Lipid screening 04/05/2023 9:28 AM EST Health Maintenance Due Date Last Done Comments [...] as of this encounter Visit Diagnoses Diagnosis Low libido Decreased libido Lipid screening Screening for lipoid disorders documented in this encounter Care Teams Tobacco Feeder Catcher Relationship Specialty Start Date End Date Nestor Kulkarni MD [address] [place] [address] PCP - General Family Medicine 03/26/20 documented as of this encounter
--- OUTSIDE RECORDS SUMMARY | 2023-06-26 08:08 | External Medical Summary ---
Author Name Unknown Address Unknown Organization K0G:[facility] [address] [place] [address] Laboratory Report Ordering Provider Test Date Status BRODERICK CEDENO 04/29/2023 15:42:20 Final Observation Date Value Abnormality Reference (Units ) Status ALT (Alanine aminotransferase) 04/29/2023 15:42:20 43 10-50 (U/L) Final Performing Location [facility] - [address] [place] [address]
--- OUTSIDE RECORDS SUMMARY | 2023-06-26 08:08 | External Medical Summary | Summary of Care ---
Author Name Unknown Organization [facility] Address [address] [facility] [place] [address] Phone [phone] Care Team Providers Care Bingo Cashier Name Role Phone Jodee Nunez MD Primary Care Provider [phone] Reason for Visit * Reason Onset Date Comments Medication Refill 02/16/2023 Encounter Details Date Type Department Care Team (Late st Contact Info) Description 02/16/2023 Refill Family Practice [facility] [address] [place] [address] Jodee Nunez MD [address] [place] [address] Prediabetes Allergies No known active allergiesdocumented as [...] for Cough. 50 Capsule 1 02/02/2023 Active Phentermine HCl 37.5 MG Oral CapsuleIndicatio ns:Prediabetes Take 1 Capsule by mouth in the morning. 30 Capsule 0 02/16/2023 Active Diclofenac Sodium 75 MG Oral Tablet Delayed Release (Voltaren) Take 1 Tablet by mouth in the morning and 1 Tablet before bedtime. With food.. 60 Tablet 1 12/22/2022 02/16/2023 Discontinued (Refill) Phentermine HCl 37.5 MG Oral CapsuleIndicatio ns:Prediabetes Take 1 Capsule by mouth in the morning. 30 Capsule 0 01/05/2023 02/16/2023 Discontinued (Refill) documented as of this [...] 02/16/2023 4:04 PM ESTSigned Prescriptions: Disp Refills Phentermine HCl 37.5 MG Oral Capsule 30 Cap*0 Sig: Take 1 Capsule by mouth in the morning. Authorizing Provider: JODEE NUNEZ Refused Prescriptions: Disp Refills Tamsulosin HCl 0.4 MG Oral Capsule (Flomax)100 Ca*1 Sig: Take 1 Capsule by mouth in the morning. Refused By: DARRYL YOUNG Reas on for Refusal: Too soon * [facility] 3[facility]23 PM EST Pending Prescriptions: Disp Refills Phentermine HCl 37.5 MG Oral Capsule 30 Cap*0 Sig: Take 1 Capsule by mouth in the morning. Refused Prescriptions: Disp Refills Tamsulosin HCl 0.4 MG Oral Capsule (Flomax)100 Ca*1 Sig: Take 1 Capsule by mouth in the morning. Refused By: DARRYL YOUNG Reason for Refusal: Too soon * Telephone Encounter - Darryl Young [facility] - 02/16/2023 3:22 PM EST I have reviewed the patients controlled substance dispensing history in the Prescription Drug Monitoring Program in compliance with the [facility] regulations before prescribing a controlled substance. PDMP checked on 02/16/2023. Pending Prescriptions: Disp Refills Phentermine HCl 37.5 MG Oral Capsule 30 Cap*0 Sig: Take 1 Capsule by mouth in the morning. Refused Prescriptions: Disp Refills Tamsulosin HCl 0.4 MG Oral Capsule (Flomax)100 Ca*1 Sig: Take 1 Capsule by mouth in the morning. Refused By: DARRYL YOUNG Reason for Refusal: Too soon Last Visit: 03/30/2022 (in office), 12/22/2022 (telemedicine) Next Visit: Visit date not found Date medication was last filled: 01/05/23 Date medication is due for refill: 02/03/23 [facility] [facility] [facility] Is this request for a controlled substance? Yes and Urine Drug Screen Not completed Toxicology results: No results found for this or any previous visit. Please approve if appropriate. Thank you, Darryl Young, PharmD, [facility] Clinical Pharmacist Centralized Clinical Pharmacy Services (CCPS) (formerly Telepharmacy) 02/16/23 3:22 PM [phone] documented in this encounter Plan of Treatment [...] as of this encounter Visit Diagnoses Diagnosis Prediabetes Other abnormal glucose documented in this encounter Care Teams Bingo Cashier Relationship Specialty Start Date End Date Jodee Nunez MD [address] [place] [address] PCP - General Family Medicine 03/26/20 documented as of this encounter
--- OUTSIDE RECORDS SUMMARY | 2023-06-26 08:08 | External Medical Summary | Summary of Care ---
Author Name Unknown Organization [facility] Address [address] [facility] [place] [address] Phone [phone] Care Team Providers Care Sr. Social Media & Mobile Manager Name Role Phone Jodee Nunez MD Primary Care Provider [phone] [phone] Reason for Visit * Reason Onset Date Comments Medication Refill 01/03/2023 Encounter Details Date Type Department Care Team Description 01/03/2023 Refill Family [facility] [address] [place] [id number] Jodee Nunez MD [address] [place] [address] Prediabetes Allergies No known active allergiesdocumented as of this encounter (statuses as of 01/05/2023) Medications Medication Sig Dispensed Refills Start Date [...] 01/04/2023 Active Phentermine HCl 37.5 MG Oral CapsuleIndicatio ns:Prediabetes Take 1 Capsule by mouth in the morning. 30 Capsule 0 01/05/2023 Active Tamsulosin HCl 0.4 MG Oral Capsule (Flomax) Take 1 Capsule by mouth in the morning. 100 Capsule 1 08/27/2022 01/03/2023 Discontinued (Refill) Phentermine HCl 37.5 MG Oral CapsuleIndicatio ns:Prediabetes Take 1 Capsule by mouth in the morning. 30 Capsule 0 11/10/2022 01/03/2023 Discontinued (Refill) documented as of this encounter (statuses as of 01/05/2023) Active Problems Problem Noted Date Chronic bilateral low back pain without sciatica 12/22/2022 Obesity, Class I, BMI 30.0-34.9 (see act ual BMI) 04/03/2020 Prediabetes 03/27/2020 HTN, goal below 130/80 03/25/2020 documented as of this encounter (statuses as of 01/05/2023) Immunizations Name Administration Dates Next Due Zoster [...] Telephone Encounter - Jodee Nunez MD - 01/05/2023 9:00 AM EDTSigned Prescriptions: Disp Refills Tamsulosin HCl 0.4 MG Oral Capsule (Flomax)100 Ca*1 Sig: Take 1Capsule by mouth in the morning.Authorizing Provider: JODEE NUNEZOrdering User: NOAH GOMEZ Phentermine HCl 37.5 MG Oral Capsule 30 Cap*0 Sig: Take 1 Capsule by mouth in the morning.Authorizing Provider: JODEE NUNEZ * Telephone Encounter - Noah Miller [facility] - 01/04/2023 3:19 PM EDTPending Prescriptions: Disp Refills Phentermine HCl 37.5 MG Oral Capsule 30 Cap*0 Sig: Take 1 Capsule by mouth in the morning. Signed Prescriptions: Disp Refills Tamsulosin HCl 0.4 MG Oral Capsule (Flomax)100 Ca*1 Sig: Take 1 Capsule by mouth in the morning. Authorizing Provider: JODEE NUNEZ Ordering User: NOAH GOMEZ -- * Telephone Encounter - Noah Miller [facility] - 01/04/2023 3:18 PM EDT I have reviewed the patients controlled substance dispensing history in the Prescription Drug Monitoring Program in compliance with the [facility] regulations before prescribing a controlled substance. PDMP checked on 01/04/2023. Pending Prescriptions: Disp Refills Phentermine HCl 37.5 MG Oral Capsule 30 Cap*0 Sig: Take 1 Capsule by mouth in the morning. Signed Prescriptions: Disp Refills Tamsulosin HCl 0.4 MG Oral Capsule (Flomax)100 Ca*1 Sig: Take 1 Capsule by mouth in the morning. Authorizing Provider: JODEE NUNEZ Ordering User: NOAH GOMEZ Last Visit: 03/30/2022 (in office), 12/22/2022 (telemedicine) Next Visit: Visit date not found Date medication was last filled: 11/10/22 Date medication is due for refill: 12/09/22 [facility] Is this request for a controlled substance? Yes and Urine Drug Screen Not completed Toxicology results: No results found for this or any previous visit. Please approve if appropriate. Thank You, Noah Gomez [facility] Clinical Pharmacist Centralized Clinical Pharmacy Services (CCPS) (formerly Telepharmacy) 01/04/2023, 3:18 PM documented in this encounter Plan of [...] glucose documented in this encounter Care Teams Sr. Social Media & Mobile Manager Relationship Specialty Start Date End Date Jodee Nunez MD [address] [place] [address] PCP - General Family Medicine 03/26/20 documented as of this encounter
--- OUTSIDE RECORDS SUMMARY | 2023-06-26 08:08 | External Medical Summary ---
Author Name Unknown Address Unknown Organization K01:[facility]ORY [facility] - [address] [facility] [place] [address] Laboratory Report Ordering Provider Test Date Status JAMAAL ELLSWORTHCarleen 04/29/2023 15:42:20 Final Observation Date Value Abnormality Reference (Units ) Status Triglyceride 04/29/2023 15:42:20 152 <=174 ( mg/dL) Final Triglyceride Reference Range s (mg/dL):
<150 Acceptable
150-174 Borderline high
175-499 High
>=500 Very high Cholesterol 04/29/2023 15:42:20 163 <200 (mg /dL) Final Total Cholesterol Reference Ranges (mg/dL):
<200 Desirable
200-239 Borderline high
>=240 High HDL 04/29/2023 15:42:20 32 Below low normal >39 (mg/dL) Final HDL Cholesterol Reference Ra nges (mg/dL):
>=60 High (Desirable)
<50 Low (Undesirable) For Females
<40 Low (Undesirable) For Males NON-HDL CHOLESTEROL 04/29/2023 15:42:20 131 <=159 (mg/dL) Final Non-HDL Cholesterol Referenc e Range (mg/dL):
<100 Target level for high risk ASCVD patient
<130 Optimal for general population
130-159 Near optimal for general population
160-189 Borderline High
190-219 High
>=220 Very High LDL, (calculated) 04/29/2023 15:42:20 101 <= 129 (mg/dL) Final LDL Cholesterol Reference Ra nges (mg/dL):
<70 Target level for high risk ASCVD patient
<100 Optimal for general population
100-129 Near optimal for general population
130-159 Borderline high
160-189 High
>=190 Very high Performing Location [facility]ATORY [facility] - [address] [place] [address]
--- OUTSIDE RECORDS SUMMARY | 2023-06-26 08:08 | External Medical Summary ---
Author Name Unknown Address Unknown Organization K0G:[facility] [address] - [address] [place] [address] Laboratory Report Ordering Provider Test Date Status BRODERICK CEDENO 04/29/2023 15:42:20 Final Observation Date Value Abnormality Reference (Units ) Status Hemoglobin 04/29/2023 15:42:20 17.2 Above high normal 1 4.0-16.8 (g/dL) Final Performing Location [facility] - [address] [place] [address]
--- OUTSIDE RECORDS SUMMARY | 2023-06-26 08:08 | External Medical Summary | Summary of Care ---
Author Name Unknown Organization [facility] Address [address] [facility] [place] [address] Phone [phone] Care Team Providers Care Information Technology Internship Name Role Phone Nestor Kulkarni MD Primary Care Provider [phone] [phone] Reason for Visit * Reason Onset Date Comments Medication Refill 04/26/2023 Encounter Details Date Type Department Care Team (Late st Contact Info) Description 04/26/2023 Refill Family Practice [facility] [address] [place] [address] Kanika Landon CRNP [address] [place] [address] Allergies No known active allergiesdocumented as of [...] bedtime. With food.. 60 Tablet 1 02/16/2023 04/26/2023 Discontinued (Refill) documented as of this [...] encounter Miscellaneous Notes * Telephone Encounter - Jud Breen [facility] - 04/27/2023 9:47 AM EST Refused Prescriptions: Disp Refills Lisinopril 10 MG Oral Tablet (Prinivil) 30 Tab*5 Sig: Take 1 Tablet by mouth in the morning.Refused By: JUD BREEN for Refusal: Too soon documented in this encounter Plan of Treatment [...] filedocumented as of this encounter Care Teams Information Technology Internship Relationship Specialty Start Date End Date Nestor Kulkarni MD [address] [place] [address] PCP - General Family Medicine 03/26/20 documented as of this encounter
[2023-06-26 08:09] LABS: Hematocrit (blood only) 47.7 % (42.0-52.0); Hemoglobin 15.5 g/dl (14.0-18.0); Mean Corpuscular Hemoglobin 29.4 pg (25.0-34.0); Mean Corpuscular Hgb Conc 32.5 g/dL (32.0-36.0); Mean Corpuscular Volume 90.5 fL (80.0-100.0); Mean Platelet Volume 12.1 fL (9.4-12.4); Platelet Count 241 K/uL (130-400); RDW Coefficient of Variation 13.5 % (11.5-14.5); RDW Standard Deviation 45.3 fL (36.4-46.3); Red Blood Count 5.27 M/uL (4.70-6.10); White Blood Count 14.73 K/ul (4.8-10.8)
[2023-06-26 08:10] LABS: Basophils # (auto) 0.05 K/uL (0.00-0.20); Basophils % (auto) 0.3 %; Eosinophils # (auto) 0.27 K/uL (0.00-0.50); Eosinophils % (auto) 1.8 %; Immature Granulocytes # (auto) 0.08 K/uL (0.01-0.20); Immature Granulocytes % (auto) 0.5 %; Lymphocytes # (auto) 1.13 K/uL (1.20-3.40); Lymphocytes % (auto) 7.7 %; Monocytes # (auto) 1.86 K/uL (0.11-0.59); Monocytes % (auto) 12.6 %; Neutrophils # (auto) 11.34 K/uL (1.40-6.50); Neutrophils % (auto) 77.1 %
[2023-06-26] MEDS: lisinopril 10 MG TAB PO SCH (08:35)
[2023-06-26] MEDS: TAMSULOSIN HCL 0.4 MG CAP PO SCH (08:35)
--- NOTE | 2023-06-26 13:27 | Surgery Progress Note ---
Date of Service June 26, 2023 Assessment & Plan (1) Acute cholecystitis: Plan: s/p lap cholecystectomy. Overall doing well. On regular diet. Given persistent leukocytosis, will keep in hospital for IV antibiotics. Recheck cbc in am. Likely will go home with drain. Admission and Anticipated Discharge Date Admission Date: June 25, 2023 Subjective POD#1 lap daniel for severe acute cholecystitis. Feels better. Pain controlled. Tolerating diet and passing flatus. Physical Exam Respiratory: normal respiratory effort, lungs clear to auscultation Cardiovascular: RRR, no murmur, no edema Gastrointestinal (Abdomen): Inspection/Auscultation: abdomen normal to inspection, + abdomen distended (mild) and normal bowel sounds Percussion/Palpation: abdomen soft; abdomen nontender and no guarding TORRES serosanguinous Musculoskeletal: no cyanosis or clubbing, extremities motor strength 5/5 Neurologic: awake; no focal motor deficits Results & Data Vital Signs (Past 12 Hours) Vital Signs Temp Pulse Resp BP Pulse Ox O2 Del Method 06/26/23 11:29 36.3 C L 62 16 146/95 H 93 Room Air 06/26/23 07:10 36.7 C 74 16 128/79 93 Room Air 06/26/23 03:31 36.4 C L 65 14 136/82 93 Room Air Laboratory Results 06/26/23 Range/Units 06:15 WBC 14.73 H (4.8-10.8) K/ul RBC 5.27 (4.70-6.10) M/uL Hgb 15.5 D (14.0-18.0) g/dl Hct 47.7 (42.0-52.0) % MCV 90.5 (80.0-100.0) fL MCH 29.4 (25.0-34.0) pg MCHC 32.5 (32.0-36.0) g/dL RDW Std Deviation 45.3 (36.4-46.3) fL RDW Coeff of Jennifer 13.5 (11.5-14.5) % Plt Count 241 (130-400) K/uL MPV 12.1 (9.4-12.4) fL Immature Gran % (Auto) 0.5 % Neut % (Auto) 77.1 % Lymph % (Auto) 7.7 % Vance % (Auto) 12.6 % Eos % (Auto) 1.8 % Baso % (Auto) 0.3 % Neut # (Auto) 11.34 H (1.40-6.50) K/uL Lymph # (Auto) 1.13 L (1.20-3.40) K/uL Vance # (Auto) 1.86 H (0.11-0.59) K/uL Eos # (Auto) 0.27 (0.00-0.50) K/uL Baso # (Auto) 0.05 (0.00-0.20) K/uL Immature Gran # (Auto) 0.08 (0.01-0.20) K/uL
[2023-06-27 06:03] LABS: Basophils # (auto) 0.06 K/uL (0.00-0.20); Basophils % (auto) 0.5 %; Eosinophils # (auto) 0.66 K/uL (0.00-0.50); Eosinophils % (auto) 5.3 %; Hematocrit (blood only) 49.9 % (42.0-52.0); Hemoglobin 16.5 g/dl (14.0-18.0); Immature Granulocytes # (auto) 0.07 K/uL (0.01-0.20); Immature Granulocytes % (auto) 0.6 %; Lymphocytes # (auto) 1.21 K/uL (1.20-3.40); Lymphocytes % (auto) 9.7 %; Mean Corpuscular Hemoglobin 29.6 pg (25.0-34.0); Mean Corpuscular Hgb Conc 33.1 g/dL (32.0-36.0); Mean Corpuscular Volume 89.6 fL (80.0-100.0); Mean Platelet Volume 11.8 fL (9.4-12.4); Monocytes # (auto) 1.58 K/uL (0.11-0.59); Monocytes % (auto) 12.7 %; Neutrophils # (auto) 8.89 K/uL (1.40-6.50); Neutrophils % (auto) 71.2 %; Platelet Count 266 K/uL (130-400); RDW Coefficient of Variation 13.6 % (11.5-14.5); RDW Standard Deviation 45.1 fL (36.4-46.3); Red Blood Count 5.57 M/uL (4.70-6.10); White Blood Count 12.47 K/ul (4.8-10.8)
--- NOTE | 2023-06-27 11:50 | Surgery Progress Note ---
Date of Service June 27, 2023 Assessment & Plan (1) Acute cholecystitis: Plan: s/p lap cholecystectomy. Overall doing well. On regular diet. Leukocytosis improving. Will discharge home today with drain and on oral antibiotics. Admission and Anticipated Discharge Date Admission Date: June 25, 2023 Subjective POD#2 lap daniel for severe acute cholecystitis. No complaints. Pain controlled with medications. Tolerating diet and passing flatus Physical Exam Respiratory: normal respiratory effort, lungs clear to auscultation Cardiovascular: RRR, no murmur, no edema Gastrointestinal (Abdomen): Inspection/Auscultation: abdomen normal to inspection, + abdomen distended (mild) and normal bowel sounds Percussion/Palpation: abdomen soft; abdomen nontender and no guarding Musculoskeletal: no cyanosis or clubbing, extremities motor strength 5/5 Neurologic: awake; no focal motor deficits Results & Data Vital Signs (Past 12 Hours) Vital Signs Temp Pulse Pulse Resp BP Pulse Ox O2 Del Method 06/27/23 07:38 36.7 C 68 18 140/94 93 Room Air 06/27/23 04:00 36.6 C 73 73 18 156/96 H 99 Room Air 06/27/23 00:00 36.7 C 78 78 18 149/61 H 97 Room Air Laboratory Results Abnormal lab results 06/27/23 Range/Units 05:23 WBC 12.47 H (4.8-10.8) K/ul Neut # (Auto) 8.89 H (1.40-6.50) K/uL [place] # (Auto) 1.58 H (0.11-0.59) K/uL Eos # (Auto) 0.66 H (0.00-0.50) K/uL
--- NOTE | 2023-06-27 11:55 | Discharge Summary ---
Date of Service June 27, 2023 Admission HPI Per Admitting Provider Madhu is a 53 year old male with history of hypertension who presented to ED with 1 week history of upper /RUQ abdominal pain that has been intermittent but increasing in severity. Some low grade fever of 100 but no persistent fevers, chills or sweats. No nausea or vomiting but has not been able to eat or drink much. Urinating without difficulty. Nothing seems to make the pain better. Pain was severe last evening and that is what prompted ER evaluation. History of umbilical hernia repair with mesh about 20 years ago. No other abdominal surgeries. No blood thinning agents. Currently states he is feeling better than last evening when pain was 9/10. Now currently 5/10 but had 6 mg of Morphine. No nausea or vomiting. Has not had anything to eat or drink today. Admission Exam (Per Admitting) Respiratory normal respiratory effort, lungs clear to auscultation Cardiovascular RRR, no murmur, no edema Gastrointestinal (Abdomen) Inspection/Auscultation: abdomen normal to inspection, + abdomen distended (mild) and normal bowel sounds Percussion/Palpation: abdomen soft; abdomen nontender and no guarding Musculoskeletal no cyanosis or clubbing, extremities motor strength 5/5 Neurologic awake; no focal motor deficits Discharge Data Consultations 06/25/23 08:51 ED Decision to Admit Stat Procedures Performed Operation Date: 06/25/23 09:25 Actual Procedures p Laparoscopic Cholecystectomy(Not Applicable) - Xiao Villeda MD Hospital Course (1) Acute cholecystitis: s/p lap cholecystectomy. Overall doing well. On regular diet. Leukocytosis improving. Will discharge home today with drain and on oral antibiotics.
== END 2023-06-27 13:31 | disposition home or self-care (01) ==
LOC: PACUINP 04:29 → ED 04:29 → 3N 11:15